=== PATIENT | male | born 1990 | race Caucasian/White ===

== ENCOUNTER 2018-01-15 16:30 | Emergency (ER) | payer OTHER, MEDICAID, SELFPAY ==
[2018-01-15 16:33] VITALS: BP 138/95; PULSE 87; RESP 18; TEMP 37.1; O2SAT 98
[2018-01-15 19:55] VITALS: BP 144/95; PULSE 89; RESP 16; TEMP 36.6; O2SAT 99
--- NOTE | 2018-01-15 20:33 | ED.NAVMDI ---
HPI - Nausea/Vomiting/Diarrhea <VICENTA Valerio - Last Filed: 01/15/18 22:19> General Chief complaint: Nausea/Vomiting/Diarrhea Stated complaint: NON STOP THROWING UP LIGHT HEADNESS/TIRED Time Seen by Provider: 01/15/18 20:17 Source: patient Mode of arrival: ambulatory Limitations: no limitations History of Present Illness HPI Narrative: 27-year-old male here for complaint of having generalized abdominal pain and nausea vomiting over the past few days. He reports that his last emesis was this afternoon. He reports having positive p.o. intake since then. No fevers no chills. He states last bowel movement was earlier today and was unremarkable. No fevers no chills. He denies any urinary symptoms. No other concerns or complaints. MD complaint: nausea and vomiting Related Data Previous Rx's Medication Instructions Recorded ondansetron 4 mg PO TID PRN #6 tab 01/15/18 Allergies Allergy/AdvReac Type Severity Reaction Status Date / Time codeine [CODEINE] Allergy Intermediate rash Unverified 09/13/17 12:07 Review of Systems <VICENTA Valerio - Last Filed: 01/15/18 22:19> Eyes Denies change in vision, Denies eye discharge, Denies irritation and Denies loss of vision ENT Ears, Nose, Mouth, and Throat: Reports as per HPI Cardiovascular Denies chest pain, Denies irregular heart rhythm, Denies lightheadedness, Denies palpitations, Denies dyspnea, Denies dyspnea on exertion and Denies orthopnea Respiratory Denies cough, Denies dyspnea, Denies dyspnea on exertion and Denies wheezing Gastrointestinal Gastrointestinal: Reports abdominal pain, Reports nausea and Reports vomiting Genitourinary Denies hematuria, Denies flank pain, Denies urinary incontinence and Denies urinary urgency Musculoskeletal Denies back pain, Denies muscle weakness, Denies numbness and Denies tingling Integumentary/Breasts Denies pruritus, Denies erythema, Denies rash and Denies wounds Neurologic Denies confusion, Denies loss of vision, Denies numbness and Denies tingling Psychiatric Denies anxiety, Denies confusion, Denies depression, Denies homicidal ideation and Denies suicidal ideation Endocrine Denies palpitations Hematologic/Lymphatic Denies easy bruising Allergic/Immunologic Denies wheezing Exam <VICENTA Valerio - Last Filed: 01/15/18 22:19> Initial Vital Signs Initial Vital Signs: Vital Signs Temperature 98.8 F 01/15/18 16:33 Pulse Rate 87 01/15/18 16:33 Respiratory Rate 18 01/15/18 16:33 Blood Pressure 138/95 H 01/15/18 16:33 Pulse Oximetry 98 01/15/18 16:33 Const General: cooperative and well developed Nutritional Appearance: well nourished Orientation: alert, awake, oriented x3 and not confused HENNJ Mouth: oral mucosae normal, oropharynx normal and moist mucous membranes Eyes Conjunctivae: conjunctivae normal Sclera: sclerae normal Pupils: PERRL EOM: EOM intact bilaterally Resp Effort & Inspection: normal respiratory effort, able to speak in complete sentences, no respiratory distress and no use of accessory muscles Auscultation: clear to auscultation bilaterally, no rales, no rhonchi and no wheezes Cardio Rate: regular rate Rhythm: regular rhythm Heart Sounds: no click, no gallops, no murmurs and no rubs Pulses: normal peripheral pulses GI Inspection: non-distended Palpation: soft, no hepatosplenomegaly, No guarding, No pulsatile mass and No tender Auscultation: normal bowel sounds Skin General: no rashes or lesions noted, No jaundice and No petechiae <Kathya Fenton DO - Last Filed: 01/16/18 04:13> Initial Vital Signs Initial Vital Signs: Vital Signs Temperature 98.8 F 01/15/18 16:33 Pulse Rate 87 01/15/18 16:33 Respiratory Rate 18 01/15/18 16:33 Blood Pressure 138/95 H 01/15/18 16:33 Pulse Oximetry 98 01/15/18 16:33 Course <VICENTA Valerio - Last Filed: 01/15/18 22:19> Orders Ordered: ED Orders 01/15/18 20:40 XR acute abdomen series Stat 01/15/18 21:35 Complete Blood Count AUTO DIFF Stat Comprehensive Metabolic Panel Stat Lipase Stat Discontinued Medications Sodium Chloride (Normal Saline 0.9%) 1,000 mls @ 1,000 mls/hr IV BOLUS ONE Stop: 01/15/18 21:39 Last Infusion: 01/15/18 22:33 Dose: 0 mls/hr Admin: 01/15/18 21:40 Dose: 1,000 mls/hr Ondansetron HCl (Zofran) 4 mg IV NOW ONE Stop: 01/15/18 20:41 Last Admin: 01/15/18 21:39 Dose: 4 mg Ondansetron HCl (Zofran Odt Prepack) 1 bottle MISC SEEINSTR ONE Stop: 01/15/18 22:15 Last Admin: 01/15/18 22:33 Dose: 1 bottle Vital Signs - 8 hr 01/15/18 21:42 01/15/18 22:43 Temperature 98.6 F Pulse Rate 81 78 Respiratory Rate 18 16 Blood Pressure 121/78 H Blood Pressure [Left Arm] 122/78 H Pulse Oximetry 99 99 <Kathya Fenton DO - Last Filed: 01/16/18 04:13> Orders Ordered: ED Orders 01/15/18 20:40 XR acute abdomen series Stat 01/15/18 21:35 Complete Blood Count AUTO DIFF Stat Comprehensive Metabolic Panel Stat Lipase Stat Discontinued Medications Sodium Chloride (Normal Saline 0.9%) 1,000 mls @ 1,000 mls/hr IV BOLUS ONE Stop: 01/15/18 21:39 Last Infusion: 01/15/18 22:33 Dose: 0 mls/hr Admin: 01/15/18 21:40 Dose: 1,000 mls/hr Ondansetron HCl (Zofran) 4 mg IV NOW ONE Stop: 01/15/18 20:41 Last Admin: 01/15/18 21:39 Dose: 4 mg Ondansetron HCl (Zofran Odt Prepack) 1 bottle MISC SEEINSTR ONE Stop: 01/15/18 22:15 Last Admin: 01/15/18 22:33 Dose: 1 bottle Vital Signs - 8 hr 01/15/18 21:42 01/15/18 22:43 Temperature 98.6 F Pulse Rate 81 78 Respiratory Rate 18 16 Blood Pressure 121/78 H Blood Pressure [Left Arm] 122/78 H Pulse Oximetry 99 99 MDM - Nausea/Vomiting/Diarrhea <VICENTA Valerio - Last Filed: 01/15/18 22:19> Lab Data Result diagrams: 01/15/18 21:35 01/15/18 21:35 Lab Results 01/15/18 01/15/18 Range/Units 21:35 21:35 WBC 6.6 (4.5-11.0) X10^3/uL RBC 4.87 (4.5-5.9) X10^6/uL Hgb 13.4 L (13.5-17.5) g/dL Hct 40.0 L (41-53) % MCV 82.0 (80-100) fL MCH 27.5 (26-34) PG MCHC 33.5 (30-36) % RDW 15.4 H (11.6-14.8) % Plt Count 282 (150-400) X10^3/uL Neut % (Auto) 64.8 (50-75) % Lymph % (Auto) 26.4 (25-40) % [place] % (Auto) 6.2 (3-14) % Eos % (Auto) 1.6 L (2-4) % Baso % (Auto) 1.0 (0-2) % Neut # (Auto) 4300 (2008-2929) /uL Sodium 140 (137-145) mmol/L Potassium 3.8 (3.4-5.1) mmol/L Chloride 101 (98-107) mmol/L Carbon Dioxide 27 (22-32) mmol/L BUN 10 (9-20) mg/dL Creatinine 0.90 (0.66-1.25) mg/dL Estimated GFR > 60.0 (>60) mL/min BUN/Creatinine Ratio 11.1 (6-22) Glucose 98 (70-100) mg/dL Calcium 9.5 (8.4-10.2) mg/dL Total Bilirubin 0.9 (0.2-1.3) mg/dL AST 44 (17-59) IU/L ALT 42 (21-72) IU/L Alkaline Phosphatase 110 (38-126) U/L Total Protein 7.7 (6.3-8.2) g/dL Albumin 4.6 (3.5-5.0) g/dL Globulin 3.1 (1.7-4.1) g/dL Albumin/Globulin Ratio 1.5 (1.0-2.8) Lipase 34 (23-300) U/L Imaging Data Abdominal x-ray: Radiologist's impression: PROCEDURE: XR ACUTE ABDOMEN SERIES INDICATIONS: Nausea vomiting generalized abdominal pain bilateral for 3 days TECHNIQUE: One view chest and two views of the abdomen were acquired. COMPARISON: None. FINDINGS: Surgical changes and devices: None. Chest: Lungs are clear. Heart size is normal. No pleural effusions. No pneumoperitoneum. Abdomen: Bowel gas pattern is normal. No suspicious calcifications. Visualized solid organ contours appear normal. Bones: No suspicious bony lesions. IMPRESSION: Unremarkable exam Dictated by: Leanne Rinaldi M.D. on 01/15/2018 at 21:02 Approved by: Leanne Rinaldi M.D. on 01/15/2018 at 21:03 [facility] Narrative Medical decision making narrative: CBC and Chem panel were obtained were unremarkable. Lipase was negative. Abdominal x-ray was obtained was negative for any acute findings. Signs and symptoms presents as a viral illness. [id number] Tylenol Motrin as needed for any discomfort. Zofran is prescribed to help with any nausea vomiting. Slowly advance diet as tolerated. Follow up with primary care provider cords into this week. For any worsening symptoms return to the emergency room. <Kathya Fenton DO - Last Filed: 01/16/18 04:13> Lab Data Lab Results 01/15/18 01/15/18 Range/Units 21:35 21:35 WBC 6.6 (4.5-11.0) X10^3/uL RBC 4.87 (4.5-5.9) X10^6/uL Hgb 13.4 L (13.5-17.5) g/dL Hct 40.0 L (41-53) % MCV 82.0 (80-100) fL MCH 27.5 (26-34) PG MCHC 33.5 (30-36) % RDW 15.4 H (11.6-14.8) % Plt Count 282 (150-400) X10^3/uL Neut % (Auto) 64.8 (50-75) % Lymph % (Auto) 26.4 (25-40) % [place] % (Auto) 6.2 (3-14) % Eos % (Auto) 1.6 L (2-4) % Baso % (Auto) 1.0 (0-2) % Neut # (Auto) 4300 (2073-1759) /uL Sodium 140 (137-145) mmol/L Potassium 3.8 (3.4-5.1) mmol/L Chloride 101 (98-107) mmol/L Carbon Dioxide 27 (22-32) mmol/L BUN 10 (9-20) mg/dL Creatinine 0.90 (0.66-1.25) mg/dL Estimated GFR > 60.0 (>60) mL/min BUN/Creatinine Ratio 11.1 (6-22) Glucose 98 (70-100) mg/dL Calcium 9.5 (8.4-10.2) mg/dL Total Bilirubin 0.9 (0.2-1.3) mg/dL AST 44 (17-59) IU/L ALT 42 (21-72) IU/L Alkaline Phosphatase 110 (38-126) U/L Total Protein 7.7 (6.3-8.2) g/dL Albumin 4.6 (3.5-5.0) g/dL Globulin 3.1 (1.7-4.1) g/dL Albumin/Globulin Ratio 1.5 (1.0-2.8) Lipase 34 (23-300) U/L Discharge Plan Departure Patient Disposition: Home, Self-Care Clinical Impression: Nausea & vomiting Discharge Date/Time: 01/15/18 22:44 Interventions: ED Discharge Assessment Last Done: 01/15/18 22:43 Instructions: Nausea and Vomiting-Adult Activity Restrictions/Additional Instructions: Laboratory results and imaging today were unremarkable. Signs and symptoms presents as a viral illness. [id number] Tylenol or Motrin as needed for any discomfort. Zofran is prescribed to help with nausea use as directed. Plenty of fluids. Slowly advance diet as tolerated. Follow up with primary care provider later this week for re-evaluation. Return emergency room for any worsening symptoms. Prescriptions: New ondansetron 4 mg tablet,disintegrating 4 mg PO TID PRN (Reason: nausea and vomiting) Qty: 6 RF: 0 Referrals: Frankie Abernathy MD [Primary Care Provider] - Stand Alone Forms: Work/School Restrictions <Kathya Fenton DO - Last Filed: 01/16/18 04:13> Cosign ED Attending Keerthi Attestation: I was immediately available in the department for consultation. Documentation has been reviewed. I agree with assessment and plan.
--- NOTE | 2018-01-15 20:40 | DI.RAD.S_ITS ---
PROCEDURE: XR ACUTE ABDOMEN SERIES INDICATIONS: Nausea vomiting generalized abdominal pain bilateral for 3 days TECHNIQUE: One view chest and two views of the abdomen were acquired. COMPARISON: None. FINDINGS: Surgical changes and devices: None. Chest: Lungs are clear. Heart size is normal. No pleural effusions. No pneumoperitoneum. Abdomen: Bowel gas pattern is normal. No suspicious calcifications. Visualized solid organ contours appear normal. Bones: No suspicious bony lesions. IMPRESSION: Unremarkable exam Dictated by: Leanne Rinaldi M.D. on 01/15/2018 at 21:02 Approved by: Leanne Rinaldi M.D. on 01/15/2018 at 21:03
[2018-01-15] MEDS: ONDANSETRON 4 MG/2 ML INJ IV (21:39)
[2018-01-15] MEDS: SODIUM CHLORIDE 0.9% 1,000 ML 1000 ML IV (21:40)
[2018-01-15 21:42] VITALS: BP 122/78; PULSE 81; RESP 18; TEMP 37; O2SAT 99
[2018-01-15 21:45] LABS: Add Manual Diff / Slide Review NO; Eosinophils Percent Auto 1.6 % (2-4); Hemoglobin 13.4 g/dL (13.5-17.5); Lymphocytes Percent Auto 26.4 % (25-40); Mean Corpuscular HGB Conc 33.5 % (30-36); Mean Corpuscular Hemoglobin 27.5 PG (26-34); Monocytes Percent Auto 6.2 % (3-14); Neutrophils Absolute Auto 4300 /uL (3000-5900); Neutrophils Percent Auto 64.8 % (50-75); Platelet Count 282 X10^3/uL (150-400); Red Blood Cell Count 4.87 X10^6/uL (4.5-5.9); Red Cell Distribution Width 15.4 % (11.6-14.8); White Blood Cell Count 6.6 X10^3/uL (4.5-11.0)
[2018-01-15 21:54] LABS: Alanine Aminotransferase 42 IU/L (21-72); Albumin 4.6 g/dL (3.5-5.0); Albumin Globulin Ratio 1.5 (1.0-2.8); Alkaline Phosphatase 110 U/L (38-126); Aspartate Aminotransferase 44 IU/L (17-59); BUN Creatinine Ratio 11.1 (6-22); Bilirubin Total 0.9 mg/dL (0.2-1.3); Blood Urea Nitrogen 10 mg/dL (9-20); Calcium 9.5 mg/dL (8.4-10.2); Carbon Dioxide 27 mmol/L (22-32); Chloride 101 mmol/L (98-107); Estimated Glomerular Filt Rate > 60.0 mL/min (>60); Globulin 3.1 g/dL (1.7-4.1); Glucose 98 mg/dL (70-100); HEMOLYSIS < 15 (0-50); Lipase 34 U/L (23-300); Potassium 3.8 mmol/L (3.4-5.1); Sodium 140 mmol/L (137-145); Total Protein 7.7 g/dL (6.3-8.2)
--- NOTE | 2018-01-15 22:14 | ED_ITS ---
HPI - Nausea/Vomiting/Diarrhea <VICENTA Valerio - Last Filed: 01/15/18 22:19> General Chief complaint: Nausea/Vomiting/Diarrhea Stated complaint: NON STOP THROWING UP LIGHT HEADNESS/TIRED Time Seen by Provider: 01/15/18 20:17 Source: patient Mode of arrival: ambulatory Limitations: no limitations History of Present Illness HPI Narrative: 27-year-old male here for complaint of having generalized abdominal pain and nausea vomiting over the past few days. He reports that his last emesis was this afternoon. He reports having positive p.o. intake since then. No fevers no chills. He states last bowel movement was earlier today and was unremarkable. No fevers no chills. He denies any urinary symptoms. No other concerns or complaints. MD complaint: nausea and vomiting Related Data Previous Rx's Medication Instructions Recorded ondansetron 4 mg PO TID PRN #6 tab 01/15/18 Allergies Allergy/AdvReac Type Severity Reaction Status Date / Time codeine [CODEINE] Allergy Intermediate rash Unverified 09/13/17 12:07 Review of Systems <VICENTA Valerio - Last Filed: 01/15/18 22:19> Eyes Denies change in vision, Denies eye discharge, Denies irritation and Denies loss of vision ENT Ears, Nose, Mouth, and Throat: Reports as per HPI Cardiovascular Denies chest pain, Denies irregular heart rhythm, Denies lightheadedness, Denies palpitations, Denies dyspnea, Denies dyspnea on exertion and Denies orthopnea Respiratory Denies cough, Denies dyspnea, Denies dyspnea on exertion and Denies wheezing Gastrointestinal Gastrointestinal: Reports abdominal pain, Reports nausea and Reports vomiting Genitourinary Denies hematuria, Denies flank pain, Denies urinary incontinence and Denies urinary urgency Musculoskeletal Denies back pain, Denies muscle weakness, Denies numbness and Denies tingling Integumentary/Breasts Denies pruritus, Denies erythema, Denies rash and Denies wounds Neurologic Denies confusion, Denies loss of vision, Denies numbness and Denies tingling Psychiatric Denies anxiety, Denies confusion, Denies depression, Denies homicidal ideation and Denies suicidal ideation Endocrine Denies palpitations Hematologic/Lymphatic Denies easy bruising Allergic/Immunologic Denies wheezing Exam <VICENTA Valerio - Last Filed: 01/15/18 22:19> Initial Vital Signs Initial Vital Signs: Vital Signs Temperature 98.8 F 01/15/18 16:33 Pulse Rate 87 01/15/18 16:33 Respiratory Rate 18 01/15/18 16:33 Blood Pressure 138/95 H 01/15/18 16:33 Pulse Oximetry 98 01/15/18 16:33 Const General: cooperative and well developed Nutritional Appearance: well nourished Orientation: alert, awake, oriented x3 and not confused HENMS Mouth: oral mucosae normal, oropharynx normal and moist mucous membranes Eyes Conjunctivae: conjunctivae normal Sclera: sclerae normal Pupils: PERRL EOM: EOM intact bilaterally Resp Effort & Inspection: normal respiratory effort, able to speak in complete sentences, no respiratory distress and no use of accessory muscles Auscultation: clear to auscultation bilaterally, no rales, no rhonchi and no wheezes Cardio Rate: regular rate Rhythm: regular rhythm Heart Sounds: no click, no gallops, no murmurs and no rubs Pulses: normal peripheral pulses GI Inspection: non-distended Palpation: soft, no hepatosplenomegaly, No guarding, No pulsatile mass and No tender Auscultation: normal bowel sounds Skin General: no rashes or lesions noted, No jaundice and No petechiae <Kathya Fenton DO - Last Filed: 01/16/18 04:13> Initial Vital Signs Initial Vital Signs: Vital Signs Temperature 98.8 F 01/15/18 16:33 Pulse Rate 87 01/15/18 16:33 Respiratory Rate 18 01/15/18 16:33 Blood Pressure 138/95 H 01/15/18 16:33 Pulse Oximetry 98 01/15/18 16:33 Course <VICENTA Valerio - Last Filed: 01/15/18 22:19> Orders Ordered: ED Orders 01/15/18 20:40 XR acute abdomen series Stat 01/15/18 21:35 Complete Blood Count AUTO DIFF Stat Comprehensive Metabolic Panel Stat Lipase Stat Discontinued Medications Sodium Chloride (Normal Saline 0.9%) 1,000 mls @ 1,000 mls/hr IV BOLUS ONE Stop: 01/15/18 21:39 Last Infusion: 01/15/18 22:33 Dose: 0 mls/hr Admin: 01/15/18 21:40 Dose: 1,000 mls/hr Ondansetron HCl (Zofran) 4 mg IV NOW ONE Stop: 01/15/18 20:41 Last Admin: 01/15/18 21:39 Dose: 4 mg Ondansetron HCl (Zofran Odt Prepack) 1 bottle MISC SEEINSTR ONE Stop: 01/15/18 22:15 Last Admin: 01/15/18 22:33 Dose: 1 bottle Vital Signs - 8 hr 01/15/18 21:42 01/15/18 22:43 Temperature 98.6 F Pulse Rate 81 78 Respiratory Rate 18 16 Blood Pressure 121/78 H Blood Pressure [Left Arm] 122/78 H Pulse Oximetry 99 99 <Kathya Fenton DO - Last Filed: 01/16/18 04:13> Orders Ordered: ED Orders 01/15/18 20:40 XR acute abdomen series Stat 01/15/18 21:35 Complete Blood Count AUTO DIFF Stat Comprehensive Metabolic Panel Stat Lipase Stat Discontinued Medications Sodium Chloride (Normal Saline 0.9%) 1,000 mls @ 1,000 mls/hr IV BOLUS ONE Stop: 01/15/18 21:39 Last Infusion: 01/15/18 22:33 Dose: 0 mls/hr Admin: 01/15/18 21:40 Dose: 1,000 mls/hr Ondansetron HCl (Zofran) 4 mg IV NOW ONE Stop: 01/15/18 20:41 Last Admin: 01/15/18 21:39 Dose: 4 mg Ondansetron HCl (Zofran Odt Prepack) 1 bottle MISC SEEINSTR ONE Stop: 01/15/18 22:15 Last Admin: 01/15/18 22:33 Dose: 1 bottle Vital Signs - 8 hr 01/15/18 21:42 01/15/18 22:43 Temperature 98.6 F Pulse Rate 81 78 Respiratory Rate 18 16 Blood Pressure 121/78 H Blood Pressure [Left Arm] 122/78 H Pulse Oximetry 99 99 MDM - Nausea/Vomiting/Diarrhea <VICENTA Valerio - Last Filed: 01/15/18 22:19> Lab Data Result diagrams: 01/15/18 21:35 01/15/18 21:35 Lab Results 01/15/18 01/15/18 Range/Units 21:35 21:35 WBC 6.6 (4.5-11.0) X10^3/uL RBC 4.87 (4.5-5.9) X10^6/uL Hgb 13.4 L (13.5-17.5) g/dL Hct 40.0 L (41-53) % MCV 82.0 (80-100) fL MCH 27.5 (26-34) PG MCHC 33.5 (30-36) % RDW 15.4 H (11.6-14.8) % Plt Count 282 (150-400) X10^3/uL Neut % (Auto) 64.8 (50-75) % Lymph % (Auto) 26.4 (25-40) % [place] % (Auto) 6.2 (3-14) % Eos % (Auto) 1.6 L (2-4) % Baso % (Auto) 1.0 (0-2) % Neut # (Auto) 4300 (9489-8046) /uL Sodium 140 (137-145) mmol/L Potassium 3.8 (3.4-5.1) mmol/L Chloride 101 (98-107) mmol/L Carbon Dioxide 27 (22-32) mmol/L BUN 10 (9-20) mg/dL Creatinine 0.90 (0.66-1.25) mg/dL Estimated GFR > 60.0 (>60) mL/min BUN/Creatinine Ratio 11.1 (6-22) Glucose 98 (70-100) mg/dL Calcium 9.5 (8.4-10.2) mg/dL Total Bilirubin 0.9 (0.2-1.3) mg/dL AST 44 (17-59) IU/L ALT 42 (21-72) IU/L Alkaline Phosphatase 110 (38-126) U/L Total Protein 7.7 (6.3-8.2) g/dL Albumin 4.6 (3.5-5.0) g/dL Globulin 3.1 (1.7-4.1) g/dL Albumin/Globulin Ratio 1.5 (1.0-2.8) Lipase 34 (23-300) U/L Imaging Data Abdominal x-ray: Radiologist's impression: PROCEDURE: XR ACUTE ABDOMEN SERIES INDICATIONS: Nausea vomiting generalized abdominal pain bilateral for 3 days TECHNIQUE: One view chest and two views of the abdomen were acquired. COMPARISON: None. FINDINGS: Surgical changes and devices: None. Chest: Lungs are clear. Heart size is normal. No pleural effusions. No pneumoperitoneum. Abdomen: Bowel gas pattern is normal. No suspicious calcifications. Visualized solid organ contours appear normal. Bones: No suspicious bony lesions. IMPRESSION: Unremarkable exam Dictated by: Leanne Rinaldi M.D. on 01/15/2018 at 21:02 Approved by: Leanne Rinaldi M.D. on 01/15/2018 at 21:03 [facility] Narrative Medical decision making narrative: CBC and Chem panel were obtained were unremarkable. Lipase was negative. Abdominal x-ray was obtained was negative for any acute findings. Signs and symptoms presents as a viral illness. Over- the-counter Tylenol Motrin as needed for any discomfort. Zofran is prescribed to help with any nausea vomiting. Slowly advance diet as tolerated. Follow up with primary care provider cords into this week. For any worsening symptoms return to the emergency room. <Kathya Fenton DO - Last Filed: 01/16/18 04:13> Lab Data Lab Results 01/15/18 01/15/18 Range/Units 21:35 21:35 WBC 6.6 (4.5-11.0) X10^3/uL RBC 4.87 (4.5-5.9) X10^6/uL Hgb 13.4 L (13.5-17.5) g/dL Hct 40.0 L (41-53) % MCV 82.0 (80-100) fL MCH 27.5 (26-34) PG MCHC 33.5 (30-36) % RDW 15.4 H (11.6-14.8) % Plt Count 282 (150-400) X10^3/uL Neut % (Auto) 64.8 (50-75) % Lymph % (Auto) 26.4 (25-40) % [place] % (Auto) 6.2 (3-14) % Eos % (Auto) 1.6 L (2-4) % Baso % (Auto) 1.0 (0-2) % Neut # (Auto) 4300 (8223-7481) /uL Sodium 140 (137-145) mmol/L Potassium 3.8 (3.4-5.1) mmol/L Chloride 101 (98-107) mmol/L Carbon Dioxide 27 (22-32) mmol/L BUN 10 (9-20) mg/dL Creatinine 0.90 (0.66-1.25) mg/dL Estimated GFR > 60.0 (>60) mL/min BUN/Creatinine Ratio 11.1 (6-22) Glucose 98 (70-100) mg/dL Calcium 9.5 (8.4-10.2) mg/dL Total Bilirubin 0.9 (0.2-1.3) mg/dL AST 44 (17-59) IU/L ALT 42 (21-72) IU/L Alkaline Phosphatase 110 (38-126) U/L Total Protein 7.7 (6.3-8.2) g/dL Albumin 4.6 (3.5-5.0) g/dL Globulin 3.1 (1.7-4.1) g/dL Albumin/Globulin Ratio 1.5 (1.0-2.8) Lipase 34 (23-300) U/L Discharge Plan Departure Patient Disposition: Home, Self-Care Clinical Impression: Nausea & vomiting Discharge Date/Time: 01/15/18 22:44 Interventions: ED Discharge Assessment Last Done: 01/15/18 22:43 Instructions: Nausea and Vomiting-Adult Activity Restrictions/Additional Instructions: Laboratory results and imaging today were unremarkable. Signs and symptoms presents as a viral illness. [id number] Tylenol or Motrin as needed for any discomfort. Zofran is prescribed to help with nausea use as directed. Plenty of fluids. Slowly advance diet as tolerated. Follow up with primary care provider later this week for re-evaluation. Return emergency room for any worsening symptoms. Prescriptions: New ondansetron 4 mg tablet,disintegrating 4 mg PO TID PRN (Reason: nausea and vomiting) Qty: 6 RF: 0 Referrals: Frankie Abernathy MD [Primary Care Provider] - Stand Alone Forms: Work/School Restrictions <Kathya Fenton DO - Last Filed: 01/16/18 04:13> Cosign ED Attending Keerthi Attestation: I was immediately available in the department for consultation. Documentation has been reviewed. I agree with assessment and plan.
[2018-01-15] MEDS: ONDANSETRON 4 MG ODT PREPACK 1 BOTTLE MISC (22:33)
[2018-01-15 22:43] VITALS: BP 121/78; PULSE 78; RESP 16; O2SAT 99
== END 2018-01-15 22:44 | disposition home or self-care (01) ==
PROVIDERS: Emergency Provider Nurse Practitioner Family; Family Provider Family Medicine; PCP Family Medicine
DX: R11.2 Nausea with vomiting, unspecified (principal)
CPT/HCPCS: 36591; 74022; 80053; 83690; 85025; 96361; 96374; 99283; 99284; J2405

== ENCOUNTER 2019-01-09 09:28 | Emergency (ER) | payer OTHER, MEDICAID, SELFPAY ==
[2019-01-09] VITALS (7 sets, daily range): BP systolic 128–140; BP diastolic 82–100; PULSE 79–98; RESP 16–18; TEMP 36.6–36.7; O2SAT 97–100
[2019-01-09 10:41] LABS: Add Manual Diff / Slide Review NO; Basophils Absolute Auto 100 /uL (0-100); Basophils Percent Auto 1.3 % (0-2); Eosinophils Absolute Auto 100 /uL (0-450); Eosinophils Percent Auto 1.9 % (2-4); Hematocrit 34.1 % (41-53); Hemoglobin 10.8 g/dL (13.5-17.5); Lymphocytes Absolute Auto 1400 /uL (1100-4500); Lymphocytes Percent Auto 24.3 % (25-40); Mean Corpuscular HGB Conc 31.6 % (30-36); Mean Corpuscular Hemoglobin 22.5 PG (26-34); Mean Corpuscular Volume 71.1 fL (80-100); Monocytes Absolute Auto 300 /uL (0-900); Monocytes Percent Auto 5.3 % (3-14); Neutrophils Absolute Auto 4000 /uL (1500-7000); Neutrophils Percent Auto 67.2 % (50-75); Platelet Count 368 X10^3/uL (150-400); Red Cell Distribution Width 16.2 % (11.6-14.8); White Blood Cell Count 5.9 X10^3/uL (4.5-11.0)
[2019-01-09 10:47] LABS: Prothrombin Time 11.4 SECONDS (10.1-12.7)
[2019-01-09] MEDS: ONDANSETRON 4 MG/2 ML INJ IV ×2 (10:49→11:57)
[2019-01-09] MEDS: SODIUM CHLORIDE 0.9% 1,000 ML 1000 ML IV ×2 (10:49→12:00)
[2019-01-09 10:50] LABS: Alanine Aminotransferase 139 IU/L (21-72); Albumin 4.7 g/dL (3.5-5.0); Albumin Globulin Ratio 1.5 (1.0-2.8); Alkaline Phosphatase 112 U/L (38-126); Aspartate Aminotransferase 105 IU/L (17-59); BUN Creatinine Ratio 12.5 (6-22); Bilirubin Total 0.4 mg/dL (0.2-1.3); Blood Urea Nitrogen 10 mg/dL (9-20); Calcium 9.2 mg/dL (8.4-10.2); Carbon Dioxide 21 mmol/L (22-32); Chloride 105 mmol/L (98-107); Estimated Glomerular Filt Rate > 60.0 mL/min (>60); Globulin 3.1 g/dL (1.7-4.1); Glucose 100 mg/dL (70-100); HEMOLYSIS < 15 (0-50); Lipase 68 U/L (23-300); PTT Partial Thromboplastin Tim 32 SECONDS (26.4-36.2); Sodium 141 mmol/L (137-145); Total Protein 7.8 g/dL (6.3-8.2)
[2019-01-09 11:39] LABS: Procalcitonin < 0.05 ng/mL (<0.5)
--- NOTE | 2019-01-09 12:16 | ED.NAVMDI ---
HPI - Nausea/Vomiting/Diarrhea <STEPHANIE Olivier - Last Filed: 01/09/19 19:09> General Chief complaint: Nausea/Vomiting/Diarrhea Stated complaint: Stomach issues Time Seen by Provider: 01/09/19 10:47 Source: patient and family Mode of arrival: ambulatory Limitations: no limitations History of Present Illness HPI Narrative: The patient is a 28-year-old male current marijuana smoker with history of ?stomach issues who presents with a chief complaint of nausea vomiting and diarrhea. He states that his general nausea vomiting and diarrhea is been going on since he was a teenager, and that he has episodes of this. He states that over the past month diarrhea has been getting worse. He states that today he just felt as though he could not go to work, so he came in. He complains of generalized abdominal pain, not localized anywhere. He states he last vomited yesterday. Denies dysuria urgency or frequency. Admits to daily marijuana smoking recently. Denies any fevers but complains of some chills. Denies any chest pain, coughing or shortness of breath. Related Data Previous Rx's Medication Instructions Recorded ondansetron 4 mg PO Q6H PRN #20 tab 01/09/19 Allergies Allergy/AdvReac Type Severity Reaction Status Date / Time codeine [CODEINE] Allergy Intermediate rash Verified 01/09/19 09:53 Review of Systems <STEPHANIE Olivier - Last Filed: 01/09/19 19:09> Review of Systems GENERAL: Denies chills, fatigue, malaise, fever, sweats. HEENT: Denies sinus pain, ear pain, sore throat, difficulty swallowing, dizziness. RESPIRATORY: Denies dyspnea, cough, wheezing, hemoptysis, sputum. CARDIOVASCULAR: Denies chest pain, palpitations, orthopnea, edema, GASTROINTESTINAL: See HPI : Denies dysuria, frequency, incontinence, hematuria, urinary retention. MUSCULOSKELETAL: denies weakness, joint pain, or bony pain SKIN: Denies rash, skin lesions, or other NEUROLOGIC: Denies weakness, headache, numbness, change in speech, confusion, seizures, incoordination. PSYCHIATRIC: No concerning psychosocial issues. 12 point review of systems is negative except for those stated above PFSH <STEPHANIE Olivier - Last Filed: 01/09/19 19:09> Medical History No significant past medical history (Acute) Social History Smoking Status: Current every day smoker Social History Smoking Status: Current every day smoker Exam <CHANNING Olivier - Last Filed: 01/09/19 19:09> Narrative Exam Narrative: GENERAL: This is a well-nourished, well-developed patient, in no acute distress HEAD: Atraumatic. Normocephalic. No temporal or scalp tenderness. EYES: Pupils equal round and reactive. Extraocular motions intact. No scleral icterus. No injection or drainage. ENT: Nose without bleeding, purulent drainage or septal hematoma. Throat without erythema, tonsillar hypertrophy or exudate. Uvula midline. Airway patent. NECK: Trachea midline. No JVD or lymphadenopathy. Supple, nontender, no meningeal signs. CARDIOVASCULAR: Regular rate and rhythm without murmurs, gallops, or rubs. RESPIRATORY: Clear to auscultation. Breath sounds equal bilaterally. No wheezes, rales, or rhonchi. GASTROINTESTINAL: Abdomen soft, diffusely tender nondistended. No hepato-splenomegaly, or palpable masses. No guarding. No guarding, nonrigid abdomen, active bowel sounds all 4 quadrants. EXTREMITIES: No clubbing, cyanosis, or edema. No joint tenderness, effusion, or edema noted. BACK: Nontender without deformity or crepitance. No flank tenderness. NEURO: AOx3. SKIN: No rash or erythema. Initial Vital Signs Initial Vital Signs: Vital Signs Temperature 97.9 F 01/09/19 09:50 Pulse Rate 98 H 01/09/19 09:50 Respiratory Rate 18 01/09/19 09:50 Blood Pressure 140/95 H 01/09/19 09:50 Pulse Oximetry 97 01/09/19 09:50 <Leslie Lim DO - Last Filed: 01/10/19 07:37> Initial Vital Signs Initial Vital Signs: Vital Signs Temperature 97.9 F 01/09/19 09:50 Pulse Rate 98 H 01/09/19 09:50 Respiratory Rate 18 01/09/19 09:50 Blood Pressure 140/95 H 01/09/19 09:50 Pulse Oximetry 97 01/09/19 09:50 Course <AMAYA Olivier- - Last Filed: 01/09/19 19:09> Orders Ordered: Discontinued Medications Al Hydrox/Mg Hydrox/Simethicone 20 ml/ Lidocaine HCl 15 ml 0 ml PO NOW ONE Stop: 01/09/19 14:10 Last Admin: 01/09/19 15:04 Dose: 35 ml Sodium Chloride (Normal Saline 0.9%) 1,000 mls @ 1,000 mls/hr IV BOLUS ONE Stop: 01/09/19 11:09 Last Infusion: 01/09/19 11:59 Dose: 0 mls/hr Admin: 01/09/19 10:49 Dose: 1,000 mls/hr Sodium Chloride (Normal Saline 0.9%) 1,000 mls @ 1,000 mls/hr IV BOLUS ONE Stop: 01/09/19 12:39 Last Infusion: 01/09/19 14:46 Dose: 0 mls/hr Admin: 01/09/19 12:00 Dose: 1,000 mls/hr Ketorolac Tromethamine (Toradol) 30 mg IV NOW ONE Stop: 01/09/19 14:10 Last Admin: 01/09/19 15:04 Dose: 30 mg Ondansetron HCl (Zofran) 4 mg IV NOW ONE Stop: 01/09/19 10:10 Last Admin: 01/09/19 10:49 Dose: 4 mg Ondansetron HCl (Zofran) 4 mg IV NOW ONE Stop: 01/09/19 11:41 Last Admin: 01/09/19 11:57 Dose: 4 mg Pantoprazole Sodium (Protonix) 40 mg IV NOW ONE Stop: 01/09/19 14:10 Last Admin: 01/09/19 14:58 Dose: 40 mg Vital Signs - 8 hr 01/09/19 11:20 01/09/19 12:03 01/09/19 13:00 Temperature Pulse Rate 82 79 82 Respiratory Rate 17 16 16 Blood Pressure [Right Arm] 133/90 133/94 H 128/82 Pulse Oximetry 100 99 100 01/09/19 15:00 01/09/19 16:00 01/09/19 17:09 Temperature 98.1 F Pulse Rate 92 H 96 H 88 Respiratory Rate 17 17 17 Blood Pressure [Right Arm] 134/100 H 133/93 H 130/82 Pulse Oximetry 100 100 <Leslie Lim, - Last Filed: 01/10/19 07:37> Orders Ordered: Discontinued Medications Al Hydrox/Mg Hydrox/Simethicone 20 ml/ Lidocaine HCl 15 ml 0 ml PO NOW ONE Stop: 01/09/19 14:10 Last Admin: 01/09/19 15:04 Dose: 35 ml Sodium Chloride (Normal Saline 0.9%) 1,000 mls @ 1,000 mls/hr IV BOLUS ONE Stop: 01/09/19 11:09 Last Infusion: 01/09/19 11:59 Dose: 0 mls/hr Admin: 01/09/19 10:49 Dose: 1,000 mls/hr Sodium Chloride (Normal Saline 0.9%) 1,000 mls @ 1,000 mls/hr IV BOLUS ONE Stop: 01/09/19 12:39 Last Infusion: 01/09/19 14:46 Dose: 0 mls/hr Admin: 01/09/19 12:00 Dose: 1,000 mls/hr Ketorolac Tromethamine (Toradol) 30 mg IV NOW ONE Stop: 01/09/19 14:10 Last Admin: 01/09/19 15:04 Dose: 30 mg Ondansetron HCl (Zofran) 4 mg IV NOW ONE Stop: 01/09/19 10:10 Last Admin: 01/09/19 10:49 Dose: 4 mg Ondansetron HCl (Zofran) 4 mg IV NOW ONE Stop: 01/09/19 11:41 Last Admin: 01/09/19 11:57 Dose: 4 mg Pantoprazole Sodium (Protonix) 40 mg IV NOW ONE Stop: 01/09/19 14:10 Last Admin: 01/09/19 14:58 Dose: 40 mg Vital Signs - 8 hr 01/09/19 11:20 01/09/19 12:03 01/09/19 13:00 Temperature Pulse Rate 82 79 82 Respiratory Rate 17 16 16 Blood Pressure [Right Arm] 133/90 133/94 H 128/82 Pulse Oximetry 100 99 100 01/09/19 15:00 01/09/19 16:00 01/09/19 17:09 Temperature 98.1 F Pulse Rate 92 H 96 H 88 Respiratory Rate 17 17 17 Blood Pressure [Right Arm] 134/100 H 133/93 H 130/82 Pulse Oximetry 100 100 MDM - Nausea/Vomiting/Diarrhea <Leslie Mari, REPAIRING CALIBRATOR- - Last Filed: 01/09/19 19:09> Lab Data Result diagrams: 01/09/19 10:36 01/09/19 10:36 Lab Results 01/09/19 01/09/19 01/09/19 Range/Units 10:36 10:36 10:36 WBC 5.9 (4.5-11.0) X10^3/uL RBC 4.80 (4.5-5.9) X10^6/uL Hgb 10.8 L (13.5-17.5) g/dL Hct 34.1 L (41-53) % MCV 71.1 L (80-100) fL MCH 22.5 L (26-34) PG MCHC 31.6 (30-36) % RDW 16.2 H (11.6-14.8) % Plt Count 368 (150-400) X10^3/uL Neut % (Auto) 67.2 (50-75) % Lymph % (Auto) 24.3 L (25-40) % [place] % (Auto) 5.3 (3-14) % Eos % (Auto) 1.9 L (2-4) % Baso % (Auto) 1.3 (0-2) % Neut # (Auto) 4000 (6382-4770) /uL Lymph # (Auto) 1400 (2568-6015) /uL [place] # (Auto) 300 (0-900) /uL Eos # (Auto) 100 (0-450) /uL Baso # (Auto) 100 (0-100) /uL PT 11.4 (10.1-12.7) SECONDS INR 1.0 (0.9-1.3) APTT 32 (26.4-36.2) SECONDS Sodium 141 (137-145) mmol/L Potassium 4.0 (3.4-5.1) mmol/L Chloride 105 (98-107) mmol/L Carbon Dioxide 21 L (22-32) mmol/L BUN 10 (9-20) mg/dL Creatinine 0.80 (0.66-1.25) mg/dL Estimated GFR > 60.0 (>60) mL/min BUN/Creatinine Ratio 12.5 (6-22) Glucose 100 (70-100) mg/dL Calcium 9.2 (8.4-10.2) mg/dL Total Bilirubin 0.4 (0.2-1.3) mg/dL AST 105 H (17-59) IU/L ALT 139 H (21-72) IU/L Alkaline Phosphatase 112 (38-126) U/L Total Protein 7.8 (6.3-8.2) g/dL Albumin 4.7 (3.5-5.0) g/dL Globulin 3.1 (1.7-4.1) g/dL Albumin/Globulin Ratio 1.5 (1.0-2.8) Lipase 68 (23-300) U/L Procalcitonin (<0.5) ng/mL Urine Opiates Screen (Negative) Ur Oxycodone Screen (Negative) Urine Methadone Screen (Negative) Ur Barbiturates Screen (Negative) U Tricyclic Antidepress (Negative) Ur Phencyclidine Scrn (Negative) Ur Amphetamines Screen (Negative) U Methamphetamines Scrn (Negative) Ur MDMA Scrn (Ecstasy) (Negative) U Benzodiazepines Scrn (Negative) Urine Cocaine Screen (Negative) U Marijuana (THC) Screen (Negative) 01/09/19 01/09/19 Range/Units 10:36 14:06 WBC (4.5-11.0) X10^3/uL RBC (4.5-5.9) X10^6/uL Hgb (13.5-17.5) g/dL Hct (41-53) % MCV (80-100) fL MCH (26-34) PG MCHC (30-36) % RDW (11.6-14.8) % Plt Count (150-400) X10^3/uL Neut % (Auto) (50-75) % Lymph % (Auto) (25-40) % [place] % (Auto) (3-14) % Eos % (Auto) (2-4) % Baso % (Auto) (0-2) % Neut # (Auto) (5710-7008) /uL Lymph # (Auto) (4264-4003) /uL [place] # (Auto) (0-900) /uL Eos # (Auto) (0-450) /uL Baso # (Auto) (0-100) /uL PT (10.1-12.7) SECONDS INR (0.9-1.3) APTT (26.4-36.2) SECONDS Sodium (137-145) mmol/L Potassium (3.4-5.1) mmol/L Chloride (98-107) mmol/L Carbon Dioxide (22-32) mmol/L BUN (9-20) mg/dL Creatinine (0.66-1.25) mg/dL Estimated GFR (>60) mL/min BUN/Creatinine Ratio (6-22) Glucose (70-100) mg/dL Calcium (8.4-10.2) mg/dL Total Bilirubin (0.2-1.3) mg/dL AST (17-59) IU/L ALT (21-72) IU/L Alkaline Phosphatase (38-126) U/L Total Protein (6.3-8.2) g/dL Albumin (3.5-5.0) g/dL Globulin (1.7-4.1) g/dL Albumin/Globulin Ratio (1.0-2.8) Lipase (23-300) U/L Procalcitonin < 0.05 (<0.5) ng/mL Urine Opiates Screen Negative (Negative) Ur Oxycodone Screen Negative (Negative) Urine Methadone Screen Negative (Negative) Ur Barbiturates Screen Negative (Negative) U Tricyclic Antidepress Negative (Negative) Ur Phencyclidine Scrn Negative (Negative) Ur Amphetamines Screen Negative (Negative) U Methamphetamines Scrn Negative (Negative) Ur MDMA Scrn (Ecstasy) Negative (Negative) U Benzodiazepines Scrn Negative (Negative) Urine Cocaine Screen Negative (Negative) U Marijuana (THC) Screen Positive H (Negative) Urine Dip Bedside Urine Glucose Negative Bedside Urine Bilirubin - Negative Bedside Urine Ketone +/- 5 Urine Specific [place] 1.025 Bedside Urine Occult Blood - Negative Bedside Urine pH 5.5 Bedside Urine Protein - Negative Bedside Urine Urobilinogen - Negative Bedside Urine Nitrite - Negative Bedside Urine Leukocytes - Negative Esterase Imaging Data US - abdomen: Radiologist's impression: [address] [address] Ultrasound Report Signed Patient: Iain Mckeon MMR#: [id number] : 1990Acct:[id number] Age/Sex: 28 / MDate of Service: 01/09/19 Loc: ED Accession Number: [id number] Procedure: US abdomen limited Ordering Provider: Leslie Mari PROCEDURE: US ABDOMEN LIMITED INDICATIONS: EPIGASTRIC PAIN TECHNIQUE: Real-time focused scanning was performed of the abdomen, with image documentation. COMPARISON: None. FINDINGS: Liver is normal in size. Increased liver parenchymal echotexture is seen. No discrete hepatic lesion. There is no gallstone. No gallbladder wall thickening or pericholecystic fluid. There is no intrahepatic biliary ductal dilatation. Mild prominence of common bile that measures up to 6.9 mm in diameter is seen. The visualized portion of pancreas shows no gross abnormality. IMPRESSION: 1. Hepatic steatosis. No discrete hepatic lesion. 2. Normal appearing gallbladder. No sonographic evidence of acute cholecystitis. 3. Mild prominence of common bile duct for patient's age. No gross choledocholithiasis. Dictated by: Prashanth Faust M.D. on 01/09/2019 at 13:30 Approved by: Prashanth Faust M.D. on 01/09/2019 at 13:32 MDM Narrative Medical decision making narrative: The patient is a 28-year-old male who presents with years of nausea vomiting and diarrhea. He states it waxes and wanes, comes and goes. He states has been worse over the past month. He endorses place stools. The patient does not have an acute abdominal exam. He does have some pain to palpation of right upper quadrant, so I obtained an ultrasound. This shows some fatty liver. He is able to take p.o.. He has been given IV fluid, Zofran, remains afebrile and states he is increasingly comfortable after Toradol and Protonix. He declined prescription of Protonix, but accepted a prescription of Zofran. This appears to be a chronic issue, stating that the patient has had these symptoms for the past several years. Of note the patient was unable to give a stool sample during a 6 hour ER stay, and ended up stating that he wanted to leave. I encouraged him to follow up with primary care physician gave him contact information for the health learning disabilities resource teacher. I think this likely has a chronic issues such as colitis or Crohn's. Discussed at length coming back to the ER for any acute concerns was abdominal pain with fever, inability keep down fluids etc. No questions or concerns upon discharge. <Leslie Lim, - Last Filed: 01/10/19 07:37> Lab Data Lab Results 01/09/19 01/09/19 01/09/19 Range/Units 10:36 10:36 10:36 WBC 5.9 (4.5-11.0) X10^3/uL RBC 4.80 (4.5-5.9) X10^6/uL Hgb 10.8 L (13.5-17.5) g/dL Hct 34.1 L (41-53) % MCV 71.1 L (80-100) fL MCH 22.5 L (26-34) PG MCHC 31.6 (30-36) % RDW 16.2 H (11.6-14.8) % Plt Count 368 (150-400) X10^3/uL Neut % (Auto) 67.2 (50-75) % Lymph % (Auto) 24.3 L (25-40) % [place] % (Auto) 5.3 (3-14) % Eos % (Auto) 1.9 L (2-4) % Baso % (Auto) 1.3 (0-2) % Neut # (Auto) 4000 (1578-6272) /uL Lymph # (Auto) 1400 (9175-9526) /uL [place] # (Auto) 300 (0-900) /uL Eos # (Auto) 100 (0-450) /uL Baso # (Auto) 100 (0-100) /uL PT 11.4 (10.1-12.7) SECONDS INR 1.0 (0.9-1.3) APTT 32 (26.4-36.2) SECONDS Sodium 141 (137-145) mmol/L Potassium 4.0 (3.4-5.1) mmol/L Chloride 105 (98-107) mmol/L Carbon Dioxide 21 L (22-32) mmol/L BUN 10 (9-20) mg/dL Creatinine 0.80 (0.66-1.25) mg/dL Estimated GFR > 60.0 (>60) mL/min BUN/Creatinine Ratio 12.5 (6-22) Glucose 100 (70-100) mg/dL Calcium 9.2 (8.4-10.2) mg/dL Total Bilirubin 0.4 (0.2-1.3) mg/dL AST 105 H (17-59) IU/L ALT 139 H (21-72) IU/L Alkaline Phosphatase 112 (38-126) U/L Total Protein 7.8 (6.3-8.2) g/dL Albumin 4.7 (3.5-5.0) g/dL Globulin 3.1 (1.7-4.1) g/dL Albumin/Globulin Ratio 1.5 (1.0-2.8) Lipase 68 (23-300) U/L Procalcitonin (<0.5) ng/mL Urine Opiates Screen (Negative) Ur Oxycodone Screen (Negative) Urine Methadone Screen (Negative) Ur Barbiturates Screen (Negative) U Tricyclic Antidepress (Negative) Ur Phencyclidine Scrn (Negative) Ur Amphetamines Screen (Negative) U Methamphetamines Scrn (Negative) Ur MDMA Scrn (Ecstasy) (Negative) U Benzodiazepines Scrn (Negative) Urine Cocaine Screen (Negative) U Marijuana (THC) Screen (Negative) 01/09/19 01/09/19 Range/Units 10:36 14:06 WBC (4.5-11.0) X10^3/uL RBC (4.5-5.9) X10^6/uL Hgb (13.5-17.5) g/dL Hct (41-53) % MCV (80-100) fL MCH (26-34) PG MCHC (30-36) % RDW (11.6-14.8) % Plt Count (150-400) X10^3/uL Neut % (Auto) (50-75) % Lymph % (Auto) (25-40) % [place] % (Auto) (3-14) % Eos % (Auto) (2-4) % Baso % (Auto) (0-2) % Neut # (Auto) (3129-1848) /uL Lymph # (Auto) (7603-4481) /uL [place] # (Auto) (0-900) /uL Eos # (Auto) (0-450) /uL Baso # (Auto) (0-100) /uL PT (10.1-12.7) SECONDS INR (0.9-1.3) APTT (26.4-36.2) SECONDS Sodium (137-145) mmol/L Potassium (3.4-5.1) mmol/L Chloride (98-107) mmol/L Carbon Dioxide (22-32) mmol/L BUN (9-20) mg/dL Creatinine (0.66-1.25) mg/dL Estimated GFR (>60) mL/min BUN/Creatinine Ratio (6-22) Glucose (70-100) mg/dL Calcium (8.4-10.2) mg/dL Total Bilirubin (0.2-1.3) mg/dL AST (17-59) IU/L ALT (21-72) IU/L Alkaline Phosphatase (38-126) U/L Total Protein (6.3-8.2) g/dL Albumin (3.5-5.0) g/dL Globulin (1.7-4.1) g/dL Albumin/Globulin Ratio (1.0-2.8) Lipase (23-300) U/L Procalcitonin < 0.05 (<0.5) ng/mL Urine Opiates Screen Negative (Negative) Ur Oxycodone Screen Negative (Negative) Urine Methadone Screen Negative (Negative) Ur Barbiturates Screen Negative (Negative) U Tricyclic Antidepress Negative (Negative) Ur Phencyclidine Scrn Negative (Negative) Ur Amphetamines Screen Negative (Negative) U Methamphetamines Scrn Negative (Negative) Ur MDMA Scrn (Ecstasy) Negative (Negative) U Benzodiazepines Scrn Negative (Negative) Urine Cocaine Screen Negative (Negative) U Marijuana (THC) Screen Positive H (Negative) Urine Dip Bedside Urine Glucose Negative Bedside Urine Bilirubin - Negative Bedside Urine Ketone +/- 5 Urine Specific [place] 1.025 Bedside Urine Occult Blood - Negative Bedside Urine pH 5.5 Bedside Urine Protein - Negative Bedside Urine Urobilinogen - Negative Bedside Urine Nitrite - Negative Bedside Urine Leukocytes - Negative Esterase 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 Impression: Abdominal pain Qualifiers: Abdominal location: generalized Qualified Code(s): R10.84 - Generalized abdominal pain Nausea & vomiting Qualifiers: Vomiting type: unspecified Vomiting Intractability: non-intractable Qualified Code(s): R11.2 - Nausea with vomiting, unspecified Discharge Date/Time: 01/09/19 17:10 Interventions: ED Discharge Assessment Last Done: 01/09/19 17:09 Instructions: DI for Abdominal Pain-Adult, DI for Diarrhea and Traveler's Diarrhea -- Adult, DI for Nausea -- Adult, DI for Vomiting -- Adult Activity Restrictions/Additional Instructions: Please follow up with a primary care provider. I suggest small frequent amounts of fluid. I suggest a simple diet, low acid, no fried foods etc I have given you a prescription of a nausea medication. Please come back to the emergency department for any acute concerns such as inability keep down fluids, abdominal pain with fever, concern of appendicitis etc I have given contact information for the [facility] learning disabilities resource teacher, who can help you identify primary care provider Prescriptions: New ondansetron 4 mg tablet,disintegrating 4 mg PO Q6H PRN (Reason: nausea and vomiting) Qty: 20 RF: 0 Referrals: [facility] [Outside] Stand Alone Forms: Work Release Note <Leslie Lim DO - Last Filed: 01/10/19 07:37> Cosign ED Attending Cosignature Attestation: I was immediately available in the department for consultation. This documentation has been reviewed and I agree with assessment and plan. Supervised by Leslie Lim DO
--- NOTE | 2019-01-09 12:19 | ED_ITS ---
HPI - Nausea/Vomiting/Diarrhea <STEPHANIE Olivier - Last Filed: 01/09/19 19:09> General Chief complaint: Nausea/Vomiting/Diarrhea Stated complaint: Stomach issues Time Seen by Provider: 01/09/19 10:47 Source: patient and family Mode of arrival: ambulatory Limitations: no limitations History of Present Illness HPI Narrative: The patient is a 28-year-old male current marijuana smoker with history of ?stomach issues who presents with a chief complaint of nausea vomiting and diarrhea. He states that his general nausea vomiting and diarrhea is been going on since he was a teenager, and that he has episodes of this. He states that over the past month diarrhea has been getting worse. He states that today he just felt as though he could not go to work, so he came in. He complains of generalized abdominal pain, not localized anywhere. He states he last vomited yesterday. Denies dysuria urgency or frequency. Admits to daily marijuana smoking recently. Denies any fevers but complains of some chills. Denies any chest pain, coughing or shortness of breath. Related Data Previous Rx's Medication Instructions Recorded ondansetron 4 mg PO Q6H PRN #20 tab 01/09/19 Allergies Allergy/AdvReac Type Severity Reaction Status Date / Time codeine [CODEINE] Allergy Intermediate rash Verified 01/09/19 09:53 Review of Systems <STEPHANIE Olivier - Last Filed: 01/09/19 19:09> Review of Systems GENERAL: Denies chills, fatigue, malaise, fever, sweats. HEENT: Denies sinus pain, ear pain, sore throat, difficulty swallowing, dizziness. RESPIRATORY: Denies dyspnea, cough, wheezing, hemoptysis, sputum. CARDIOVASCULAR: Denies chest pain, palpitations, orthopnea, edema, GASTROINTESTINAL: See HPI : Denies dysuria, frequency, incontinence, hematuria, urinary retention. MUSCULOSKELETAL: denies weakness, joint pain, or bony pain SKIN: Denies rash, skin lesions, or other NEUROLOGIC: Denies weakness, headache, numbness, change in speech, confusion, seizures, incoordination. PSYCHIATRIC: No concerning psychosocial issues. 12 point review of systems is negative except for those stated above PFSH <STEPHANIE Olivier - Last Filed: 01/09/19 19:09> Medical History No significant past medical history (Acute) Social History Smoking Status: Current every day smoker Social History Smoking Status: Current every day smoker Exam <CHANNING Olivier - Last Filed: 01/09/19 19:09> Narrative Exam Narrative: GENERAL: This is a well-nourished, well-developed patient, in no acute distress HEAD: Atraumatic. Normocephalic. No temporal or scalp tenderness. EYES: Pupils equal round and reactive. Extraocular motions intact. No scleral icterus. No injection or drainage. ENT: Nose without bleeding, purulent drainage or septal hematoma. Throat without erythema, tonsillar hypertrophy or exudate. Uvula midline. Airway patent. NECK: Trachea midline. No JVD or lymphadenopathy. Supple, nontender, no meningeal signs. CARDIOVASCULAR: Regular rate and rhythm without murmurs, gallops, or rubs. RESPIRATORY: Clear to auscultation. Breath sounds equal bilaterally. No wheezes, rales, or rhonchi. GASTROINTESTINAL: Abdomen soft, diffusely tender nondistended. No hepato-s plenomegaly, or palpable masses. No guarding. No guarding, nonrigid abdomen, active bowel sounds all 4 quadrants. EXTREMITIES: No clubbing, cyanosis, or edema. No joint tenderness, effusion, or edema noted. BACK: Nontender without deformity or crepitance. No flank tenderness. NEURO: AOx3. SKIN: No rash or erythema. Initial Vital Signs Initial Vital Signs: Vital Signs Temperature 97.9 F 01/09/19 09:50 Pulse Rate 98 H 01/09/19 09:50 Respiratory Rate 18 01/09/19 09:50 Blood Pressure 140/95 H 01/09/19 09:50 Pulse Oximetry 97 01/09/19 09:50 <Leslie Lim DO - Last Filed: 01/10/19 07:37> Initial Vital Signs Initial Vital Signs: Vital Signs Temperature 97.9 F 01/09/19 09:50 Pulse Rate 98 H 01/09/19 09:50 Respiratory Rate 18 01/09/19 09:50 Blood Pressure 140/95 H 01/09/19 09:50 Pulse Oximetry 97 01/09/19 09:50 Course <AMAYA Olivier- - Last Filed: 01/09/19 19:09> Orders Ordered: Discontinued Medications Al Hydrox/Mg Hydrox/Simethicone 20 ml/ Lidocaine HCl 15 ml 0 ml PO NOW ONE Stop: 01/09/19 14:10 Last Admin: 01/09/19 15:04 Dose: 35 ml Sodium Chloride (Normal Saline 0.9%) 1,000 mls @ 1,000 mls/hr IV BOLUS ONE Stop: 01/09/19 11:09 Last Infusion: 01/09/19 11:59 Dose: 0 mls/hr Admin: 01/09/19 10:49 Dose: 1,000 mls/hr Sodium Chloride (Normal Saline 0.9%) 1,000 mls @ 1,000 mls/hr IV BOLUS ONE Stop: 01/09/19 12:39 Last Infusion: 01/09/19 14:46 Dose: 0 mls/hr Admin: 01/09/19 12:00 Dose: 1,000 mls/hr Ketorolac Tromethamine (Toradol) 30 mg IV NOW ONE Stop: 01/09/19 14:10 Last Admin: 01/09/19 15:04 Dose: 30 mg Ondansetron HCl (Zofran) 4 mg IV NOW ONE Stop: 01/09/19 10:10 Last Admin: 01/09/19 10:49 Dose: 4 mg Ondansetron HCl (Zofran) 4 mg IV NOW ONE Stop: 01/09/19 11:41 Last Admin: 01/09/19 11:57 Dose: 4 mg Pantoprazole Sodium (Protonix) 40 mg IV NOW ONE Stop: 01/09/19 14:10 Last Admin: 01/09/19 14:58 Dose: 40 mg Vital Signs - 8 hr 01/09/19 11:20 01/09/19 12:03 01/09/19 13:00 Temperature Pulse Rate 82 79 82 Respiratory Rate 17 16 16 Blood Pressure [Right Arm] 133/90 133/94 H 128/82 Pulse Oximetry 100 99 100 01/09/19 15:00 01/09/19 16:00 01/09/19 17:09 Temperature 98.1 F Pulse Rate 92 H 96 H 88 Respiratory Rate 17 17 17 Blood Pressure [Right Arm] 134/100 H 133/93 H 130/82 Pulse Oximetry 100 100 <Leslie Lim, - Last Filed: 01/10/19 07:37> Orders Ordered: Discontinued Medications Al Hydrox/Mg Hydrox/Simethicone 20 ml/ Lidocaine HCl 15 ml 0 ml PO NOW ONE Stop: 01/09/19 14:10 Last Admin: 01/09/19 15:04 Dose: 35 ml Sodium Chloride (Normal Saline 0.9%) 1,000 mls @ 1,000 mls/hr IV BOLUS ONE Stop: 01/09/19 11:09 Last Infusion: 01/09/19 11:59 Dose: 0 mls/hr Admin: 01/09/19 10:49 Dose: 1,000 mls/hr Sodium Chloride (Normal Saline 0.9%) 1,000 mls @ 1,000 mls/hr IV BOLUS ONE Stop: 01/09/19 12:39 Last Infusion: 01/09/19 14:46 Dose: 0 mls/hr Admin: 01/09/19 12:00 Dose: 1,000 mls/hr Ketorolac Tromethamine (Toradol) 30 mg IV NOW ONE Stop: 01/09/19 14:10 Last Admin: 01/09/19 15:04 Dose: 30 mg Ondansetron HCl (Zofran) 4 mg IV NOW ONE Stop: 01/09/19 10:10 Last Admin: 01/09/19 10:49 Dose: 4 mg Ondansetron HCl (Zofran) 4 mg IV NOW ONE Stop: 01/09/19 11:41 Last Admin: 01/09/19 11:57 Dose: 4 mg Pantoprazole Sodium (Protonix) 40 mg IV NOW ONE Stop: 01/09/19 14:10 Last Admin: 01/09/19 14:58 Dose: 40 mg Vital Signs - 8 hr 01/09/19 11:20 01/09/19 12:03 01/09/19 13:00 Temperature Pulse Rate 82 79 82 Respiratory Rate 17 16 16 Blood Pressure [Right Arm] 133/90 133/94 H 128/82 Pulse Oximetry 100 99 100 01/09/19 15:00 01/09/19 16:00 01/09/19 17:09 Temperature 98.1 F Pulse Rate 92 H 96 H 88 Respiratory Rate 17 17 17 Blood Pressure [Right Arm] 134/100 H 133/93 H 130/82 Pulse Oximetry 100 100 MDM - Nausea/Vomiting/Diarrhea <Leslie Mari CYTOLOGY TECHNOLOGIST-BC - Last Filed: 01/09/19 19:09> Lab Data Result diagrams: 01/09/19 10:36 01/09/19 10:36 Lab Results 01/09/19 01/09/19 01/09/19 Range/Units 10:36 10:36 10:36 WBC 5.9 (4.5-11.0) X10^3/uL RBC 4.80 (4.5-5.9) X10^6/uL Hgb 10.8 L (13.5-17.5) g/dL Hct 34.1 L (41-53) % MCV 71.1 L (80-100) fL MCH 22.5 L (26-34) PG MCHC 31.6 (30-36) % RDW 16.2 H (11.6-14.8) % Plt Count 368 (150-400) X10^3/uL Neut % (Auto) 67.2 (50-75) % Lymph % (Auto) 24.3 L (25-40) % Stanton % (Auto) 5.3 (3-14) % Eos % (Auto) 1.9 L (2-4) % Baso % (Auto) 1.3 (0-2) % Neut # (Auto) 4000 (4933-3838) /uL Lymph # (Auto) 1400 (6345-3639) /uL Stanton # (Auto) 300 (0-900) /uL Eos # (Auto) 100 (0-450) /uL Baso # (Auto) 100 (0-100) /uL PT 11.4 (10.1-12.7) SECONDS INR 1.0 (0.9-1.3) APTT 32 (26.4-36.2) SECONDS Sodium 141 (137-145) mmol/L Potassium 4.0 (3.4-5.1) mmol/L Chloride 105 (98-107) mmol/L Carbon Dioxide 21 L (22-32) mmol/L BUN 10 (9-20) mg/dL Creatinine 0.80 (0.66-1.25) mg/dL Estimated GFR > 60.0 (>60) mL/min BUN/Creatinine Ratio 12.5 (6-22) Glucose 100 (70-100) mg/dL Calcium 9.2 (8.4-10.2) mg/dL Total Bilirubin 0.4 (0.2-1.3) mg/dL AST 105 H (17-59) IU/L ALT 139 H (21-72) IU/L Alkaline Phosphatase 112 (38-126) U/L Total Protein 7.8 (6.3-8.2) g/dL Albumin 4.7 (3.5-5.0) g/dL Globulin 3.1 (1.7-4.1) g/dL Albumin/Globulin Ratio 1.5 (1.0-2.8) Lipase 68 (23-300) U/L Procalcitonin (<0.5) ng/mL Urine Opiates Screen (Negative) Ur Oxycodone Screen (Negative) Urine Methadone Screen (Negative) Ur Barbiturates Screen (Negative) U Tricyclic Antidepress (Negative) Ur Phencyclidine Scrn (Negative) Ur Amphetamines Screen (Negative) U Methamphetamines Scrn (Negative) Ur MDMA Scrn (Ecstasy) (Negative) U Benzodiazepines Scrn (Negative) Urine Cocaine Screen (Negative) U Marijuana (THC) Screen (Negative) 01/09/19 01/09/19 Range/Units 10:36 14:06 WBC (4.5-11.0) X10^3/uL RBC (4.5-5.9) X10^6/uL Hgb (13.5-17.5) g/dL Hct (41-53) % MCV (80-100) fL MCH (26-34) PG MCHC (30-36) % RDW (11.6-14.8) % Plt Count (150-400) X10^3/uL Neut % (Auto) (50-75) % Lymph % (Auto) (25-40) % Stanton % (Auto) (3-14) % Eos % (Auto) (2-4) % Baso % (Auto) (0-2) % Neut # (Auto) (6691-2224) /uL Lymph # (Auto) (2525-0036) /uL Stanton # (Auto) (0-900) /uL Eos # (Auto) (0-450) /uL Baso # (Auto) (0-100) /uL PT (10.1-12.7) SECONDS INR (0.9-1.3) APTT (26.4-36.2) SECONDS Sodium (137-145) mmol/L Potassium (3.4-5.1) mmol/L Chloride (98-107) mmol/L Carbon Dioxide (22-32) mmol/L BUN (9-20) mg/dL Creatinine (0.66-1.25) mg/dL Estimated GFR (>60) mL/min BUN/Creatinine Ratio (6-22) Glucose (70-100) mg/dL Calcium (8.4-10.2) mg/dL Total Bilirubin (0.2-1.3) mg/dL AST (17-59) IU/L ALT (21-72) IU/L Alkaline Phosphatase (38-126) U/L Total Protein (6.3-8.2) g/dL Albumin (3.5-5.0) g/dL Globulin (1.7-4.1) g/dL Albumin/Globulin Ratio (1.0-2.8) Lipase (23-300) U/L Procalcitonin < 0.05 (<0.5) ng/mL Urine Opiates Screen Negative (Negative) Ur Oxycodone Screen Negative (Negative) Urine Methadone Screen Negative (Negative) Ur Barbiturates Screen Negative (Negative) U Tricyclic Antidepress Negative (Negative) Ur Phencyclidine Scrn Negative (Negative) Ur Amphetamines Screen Negative (Negative) U Methamphetamines Scrn Negative (Negative) Ur MDMA Scrn (Ecstasy) Negative (Negative) U Benzodiazepines Scrn Negative (Negative) Urine Cocaine Screen Negative (Negative) U Marijuana (THC) Screen Positive H (Negative) Urine Dip Bedside Urine Glucose Negative Bedside Urine Bilirubin - Negative Bedside Urine Ketone +/- 5 Urine Specific [place] 1.025 Bedside Urine Occult Blood - Negative Bedside Urine pH 5.5 Bedside Urine Protein - Negative Bedside Urine Urobilinogen - Negative Bedside Urine Nitrite - Negative Bedside Urine Leukocytes - Negative Esterase Imaging Data US - abdomen: Radiologist's impression: [address] [address] Ultrasound Report Signed Patient: Iain Mckeon [facility]#: [id number] : 1990Acct:[id number] Age/Sex: 28 / MDate of Service: 01/09/19 Loc: ED Accession Number: [id number] Procedure: US abdomen limited Ordering Provider: Leslie Mari PROCEDURE: US ABDOMEN LIMITED INDICATIONS: EPIGASTRIC PAIN TECHNIQUE: Real-time focused scanning was performed of the abdomen, with image documentation. COMPARISON: None. FINDINGS: Liver is normal in size. Increased liver parenchymal echotexture is seen. No discrete hepatic lesion. There is no gallstone. No gallbladder wall thickening or pericholecystic fluid. There is no intrahepatic biliary ductal dilatation. Mild prominence of common bile that measures up to 6.9 mm in diameter is seen. The visualized portion of pancreas shows no gross abnormality. IMPRESSION: 1. Hepatic steatosis. No discrete hepatic lesion. 2. Normal appearing gallbladder. No sonographic evidence of acute cholecystitis. 3. Mild prominence of common bile duct for patient's age. No gross choledocholithiasis. Dictated by: Prashanth Faust M.D. on 01/09/2019 at 13:30 Approved by: Prashanth Faust M.D. on 01/09/2019 at 13:32 MDM Narrative Medical decision making narrative: The patient is a 28-year-old male who presents with years of nausea vomiting and diarrhea. He states it waxes and wanes, comes and goes. He states has been worse over the past month. He endorses place stools. The patient does not have an acute abdominal exam. He does have some pain to palpation of right upper quadrant, so I obtained an ultrasound. This shows some fatty liver. He is able to take p.o.. He has been given IV fluid, Zofran, remains afebrile and states he is increasingly comfortable after Toradol and Protonix. He declined prescription of Protonix, but accepted a prescription of Zofran. This appears to be a chronic issue, stating that the patient has had these symptoms for the past several years. Of note the patient was unable to give a stool sample during a 6 hour ER stay, and ended up stating that he wanted to leave. I encouraged him to follow up with primary care physician gave him contact information for the health water resource specialist. I think this likely has a chronic issues such as colitis or Crohn's. Discussed at length coming back to the ER for any acute concerns was abdominal pain with fever, inability keep down fluids etc. No questions or concerns upon discharge. <Leslie Peter Lim, DO - Last Filed: 01/10/19 07:37> Lab Data Lab Results 01/09/19 01/09/19 01/09/19 Range/Units 10:36 10:36 10:36 WBC 5.9 (4.5-11.0) X10^3/uL RBC 4.80 (4.5-5.9) X10^6/uL Hgb 10.8 L (13.5-17.5) g/dL Hct 34.1 L (41-53) % MCV 71.1 L (80-100) fL MCH 22.5 L (26-34) PG MCHC 31.6 (30-36) % RDW 16.2 H (11.6-14.8) % Plt Count 368 (150-400) X10^3/uL Neut % (Auto) 67.2 (50-75) % Lymph % (Auto) 24.3 L (25-40) % Stanton % (Auto) 5.3 (3-14) % Eos % (Auto) 1.9 L (2-4) % Baso % (Auto) 1.3 (0-2) % Neut # (Auto) 4000 (7264-4285) /uL Lymph # (Auto) 1400 (1102-8662) /uL Stanton # (Auto) 300 (0-900) /uL Eos # (Auto) 100 (0-450) /uL Baso # (Auto) 100 (0-100) /uL PT 11.4 (10.1-12.7) SECONDS INR 1.0 (0.9-1.3) APTT 32 (26.4-36.2) SECONDS Sodium 141 (137-145) mmol/L Potassium 4.0 (3.4-5.1) mmol/L Chloride 105 (98-107) mmol/L Carbon Dioxide 21 L (22-32) mmol/L BUN 10 (9-20) mg/dL Creatinine 0.80 (0.66-1.25) mg/dL Estimated GFR > 60.0 (>60) mL/min BUN/Creatinine Ratio 12.5 (6-22) Glucose 100 (70-100) mg/dL Calcium 9.2 (8.4-10.2) mg/dL Total Bilirubin 0.4 (0.2-1.3) mg/dL AST 105 H (17-59) IU/L ALT 139 H (21-72) IU/L Alkaline Phosphatase 112 (38-126) U/L Total Protein 7.8 (6.3-8.2) g/dL Albumin 4.7 (3.5-5.0) g/dL Globulin 3.1 (1.7-4.1) g/dL Albumin/Globulin Ratio 1.5 (1.0-2.8) Lipase 68 (23-300) U/L Procalcitonin (<0.5) ng/mL Urine Opiates Screen (Negative) Ur Oxycodone Screen (Negative) Urine Methadone Screen (Negative) Ur Barbiturates Screen (Negative) U Tricyclic Antidepress (Negative) Ur Phencyclidine Scrn (Negative) Ur Amphetamines Screen (Negative) U Methamphetamines Scrn (Negative) Ur MDMA Scrn (Ecstasy) (Negative) U Benzodiazepines Scrn (Negative) Urine Cocaine Screen (Negative) U Marijuana (THC) Screen (Negative) 01/09/19 01/09/19 Range/Units 10:36 14:06 WBC (4.5-11.0) X10^3/uL RBC (4.5-5.9) X10^6/uL Hgb (13.5-17.5) g/dL Hct (41-53) % MCV (80-100) fL MCH (26-34) PG MCHC (30-36) % RDW (11.6-14.8) % Plt Count (150-400) X10^3/uL Neut % (Auto) (50-75) % Lymph % (Auto) (25-40) % Stanton % (Auto) (3-14) % Eos % (Auto) (2-4) % Baso % (Auto) (0-2) % Neut # (Auto) (2472-1846) /uL Lymph # (Auto) (3864-9569) /uL Stanton # (Auto) (0-900) /uL Eos # (Auto) (0-450) /uL Baso # (Auto) (0-100) /uL PT (10.1-12.7) SECONDS INR (0.9-1.3) APTT (26.4-36.2) SECONDS Sodium (137-145) mmol/L Potassium (3.4-5.1) mmol/L Chloride (98-107) mmol/L Carbon Dioxide (22-32) mmol/L BUN (9-20) mg/dL Creatinine (0.66-1.25) mg/dL Estimated GFR (>60) mL/min BUN/Creatinine Ratio (6-22) Glucose (70-100) mg/dL Calcium (8.4-10.2) mg/dL Total Bilirubin (0.2-1.3) mg/dL AST (17-59) IU/L ALT (21-72) IU/L Alkaline Phosphatase (38-126) U/L Total Protein (6.3-8.2) g/dL Albumin (3.5-5.0) g/dL Globulin (1.7-4.1) g/dL Albumin/Globulin Ratio (1.0-2.8) Lipase (23-300) U/L Procalcitonin < 0.05 (<0.5) ng/mL Urine Opiates Screen Negative (Negative) Ur Oxycodone Screen Negative (Negative) Urine Methadone Screen Negative (Negative) Ur Barbiturates Screen Negative (Negative) U Tricyclic Antidepress Negative (Negative) Ur Phencyclidine Scrn Negative (Negative) Ur Amphetamines Screen Negative (Negative) U Methamphetamines Scrn Negative (Negative) Ur MDMA Scrn (Ecstasy) Negative (Negative) U Benzodiazepines Scrn Negative (Negative) Urine Cocaine Screen Negative (Negative) U Marijuana (THC) Screen Positive H (Negative) Urine Dip Bedside Urine Glucose Negative Bedside Urine Bilirubin - Negative Bedside Urine Ketone +/- 5 Urine Specific [place] 1.025 Bedside Urine Occult Blood - Negative Bedside Urine pH 5.5 Bedside Urine Protein - Negative Bedside Urine Urobilinogen - Negative Bedside Urine Nitrite - Negative Bedside Urine Leukocytes - Negative Esterase 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 Impression: Abdominal pain Qualifiers: Abdominal location: generalized Qualified Code(s): R10.84 - Generalized abdominal pain Nausea & vomiting Qualifiers: Vomiting type: unspecified Vomiting Intractability: non-intractable Qualified Code(s): R11.2 - Nausea with vomiting, unspecified Discharge Date/Time: 01/09/19 17:10 Interventions: ED Discharge Assessment Last Done: 01/09/19 17:09 Instructions: DI for Abdominal Pain-Adult, DI for Diarrhea and Traveler's Diarrhea -- Adult, DI for Nausea -- Adult, DI for Vomiting -- Adult Activity Restrictions/Additional Instructions: Please follow up with a primary care provider. I suggest small frequent amounts of fluid. I suggest a simple diet, low acid, no fried foods etc I have given you a prescription of a nausea medication. Please come back to the emergency department for any acute concerns such as inability keep down fluids, abdominal pain with fever, concern of appendicitis etc I have given contact information for the [facility] water resource specialist, who can help you identify primary care provider Prescriptions: New ondansetron 4 mg tablet,disintegrating 4 mg PO Q6H PRN (Reason: nausea and vomiting) Qty: 20 RF: 0 Referrals: [facility] [Outside] Stand Alone Forms: Work Release Note <Leslie Lim DO - Last Filed: 01/10/19 07:37> Cosign ED Attending Cosjudyature Attestation: I was immediately available in the department for consultation. This documentation has been reviewed and I agree with assessment and plan. Supervised by Leslie Lim DO
--- NOTE | 2019-01-09 13:49 | DI.US.S_ITS ---
PROCEDURE: US ABDOMEN LIMITED INDICATIONS: EPIGASTRIC PAIN TECHNIQUE: Real-time focused scanning was performed of the abdomen, with image documentation. COMPARISON: None. FINDINGS: Liver is normal in size. Increased liver parenchymal echotexture is seen. No discrete hepatic lesion. There is no gallstone. No gallbladder wall thickening or pericholecystic fluid. There is no intrahepatic biliary ductal dilatation. Mild prominence of common bile that measures up to 6.9 mm in diameter is seen. The visualized portion of pancreas shows no gross abnormality. IMPRESSION: 1. Hepatic steatosis. No discrete hepatic lesion. 2. Normal appearing gallbladder. No sonographic evidence of acute cholecystitis. 3. Mild prominence of common bile duct for patient's age. No gross choledocholithiasis. Dictated by: Prashanth Faust M.D. on 01/09/2019 at 13:30 Approved by: Prashanth Faust M.D. on 01/09/2019 at 13:32
[2019-01-09 14:25] LABS: Urine Amphetamines Negative (Negative); Urine Barbiturates Negative (Negative); Urine Benzodiazepines Negative (Negative); Urine Cocaine Negative (Negative); Urine MDMA Negative (Negative); Urine Methadone Negative (Negative); Urine Methamphetamines Negative (Negative); Urine Morphine/Opi cutoff 2000 Negative (Negative); Urine Oxycodone Negative (Negative); Urine Phencyclidine Negative (Negative); Urine Tetrahydrocannabinol Positive (Negative); Urine Tricyclic Antidepressant Negative (Negative)
[2019-01-09] MEDS: PANTOPRAZOLE 40 MG VIAL IV (14:58)
[2019-01-09] MEDS: KETOROLAC 60 MG/2 ML VIAL 30 MG IV (15:04)
[2019-01-09] MEDS: MAG HYDROX/ALUMINUM/SIMETH SUS 20 ML, LIDOCAINE VISCOUS 2% 15 ML PO (15:04)
== END 2019-01-09 17:10 | disposition home or self-care (01) ==
PROVIDERS: Emergency Medicine; Emergency Provider Nurse Practitioner Family
DX: R10.84 Generalized abdominal pain (principal); R11.2 Nausea with vomiting, unspecified
CPT/HCPCS: 36591; 76705; 80053; 80305; 81003; 83690; 84145; 85025; 85610; 85730; 96361; 96374; 96375; 96376; 99284; C9113; J1885; J2405

== ENCOUNTER → 2020-09-15 14:27 | Outpatient (CLI) | payer OTHER, MEDICAID, SELFPAY ==
--- NOTE | 2020-09-15 14:31 | DI.RAD.S_ITS ---
PROCEDURE: XR CHEST 2V INDICATIONS: Chest pain TECHNIQUE: 2 views of the chest were acquired. COMPARISON: [facility], , CHEST 2 VIEW, 06/18/2014, 9:52. FINDINGS: Surgical changes and devices: None. Lungs and pleura: Lungs are clear. No pleural effusions or pneumothorax. Mediastinum: Mediastinal contours are normal. Heart size is normal. Bones and chest wall: No suspicious bony abnormalities. Soft tissues appear unremarkable. IMPRESSION: No acute cardiopulmonary disease. Dictated by: Unique Davis M.D. on 09/15/2020 at 14:50 Approved by: Unique Davis M.D. on 09/15/2020 at 14:51
== END ==
PROVIDERS: PCP Student in an Organized Health Care Education/Training Program; Referring Provider Student in an Organized Health Care Education/Training Program; Visit Provider Student in an Organized Health Care Education/Training Program
DX: R07.9 Chest pain, unspecified (principal)
CPT/HCPCS: 71046

== ENCOUNTER → 2020-09-23 10:57 | Outpatient (CLI) | payer OTHER, MEDICAID, SELFPAY ==
[2020-09-23 13:15] LABS: COVID19 -Nasal RAPID Negative (Negative)
== END ==
PROVIDERS: PCP Student in an Organized Health Care Education/Training Program; Visit Provider Student in an Organized Health Care Education/Training Program
DX: Z20.822 Contact with and (suspected) exposure to COVID-19 (principal)
CPT/HCPCS: 87635

== ENCOUNTER → 2020-09-24 15:05 | Outpatient (CLI) | payer OTHER, MEDICAID, SELFPAY ==
--- NOTE | 2020-09-24 18:30 | DI.NM.S_ITS ---
DATE OF SERVICE: 09/24/2020 PROCEDURE: Exercise stress test. INDICATION: Chest pain, syncope, history of anxiety, alcohol use. CARDIAC STRESS: The patient underwent exercise stress test under the supervision of an attending staff. The patient walked on Ramiro protocol for 4 minutes 32 seconds. Achieved 96 percent of target heart rate. Initial blood pressure 136/88. Peak blood pressure 160/76. Maximum heart rate achieved 181 percent. Achieved 7 METs of workload. The patient had mid sternal 6/10 chest discomfort at peak exercise, which got dissipated in early recovery. Functional aerobic impairment positive 63 percent. Baseline rhythm was sinus to sinus tachycardia up to heart rate of 115 beats per minute. During exercise ,there was enhanced chronotropic response. Within first stage, his heart rate went up to 169 beats per minute. There were no convincing ischemic changes. In late recovery, there was some ST flattening in inferolateral leads without any convincing ischemic changes. There were no new significant arrhythmias other than sinus tachycardia. CONCLUSION: Exercise stress test is negative for obvious inducible ischemia. There were no significant arrhythmias. Normal blood pressure response. Baseline sinus tachycardia with enhanced chronotropic response. Poor exercise tolerance. Had 6/10 midsternal chest discomfort at peak exercise, which got dissipated quickly. Iain Mckeon - HORACIO/subha/christina doc#: [id number]/job#: [id number] dd: 09/24/2020 17:37:00 dt: 09/24/2020 18:21:00 DICTATING /COPIES TO: Shayy Kulkarni MD COPIES MNE: SELENE;
== END ==
PROVIDERS: PCP Student in an Organized Health Care Education/Training Program; Referring Provider Student in an Organized Health Care Education/Training Program; Visit Provider Student in an Organized Health Care Education/Training Program
DX: R07.9 Chest pain, unspecified (principal); R55 Syncope and collapse
CPT/HCPCS: 93017

== ENCOUNTER → 2020-10-26 07:46 | Outpatient (CLI) | payer OTHER, MEDICAID, SELFPAY ==
--- NOTE | 2020-10-26 07:47 | DI.ECHO.S_ITS ---
[facility] +---------+ : : [address] : [address] : : : : [id number] : : : : Phone: [phone]+ Echocardiogram Report + + :Name: BILLIE MCKEE Study Date: 10/26/2020 Height: 70.5 in: :[facility] ReadingLocation: Weight: 197 lb : : Gender: Male BSA: 2.1 m2 : :: 1990 Age: 30 yrs BP: 146/93 mmHg: :Reason For Study: CHEST PAIN, SYNCOPE : :Ordering Physician: GABI, : :CARRIE Performed By: Naila Rich : :Referring: CARRIE ASHLEY : + + Interpretation Summary 1) Normal left ventricular thickness, size, wall motion, and systolic function (EF 60-65%). 2) Normal right ventricular size and function. 3) No significant valvular abnormalities. 4) No prior Echo available for comparison. Procedure: A two-dimensional transthoracic echocardiogram with color flow and Doppler was performed. The study quality was technically adequate. There is no prior echocardiogram noted for this patient. The patient was in sinus rhythm with heart rates between 84-95 bpm during the exam. Left Ventricle: The left ventricle is normal in size and wall thickness. The ejection fraction is estimated to be 60-65%. Left ventricular systolic function appears normal without focal wall motion abnormalities. Diastolic parameters suggest probable normal left ventricular diastolic function and normal filling pressures. Right Ventricle: The right ventricle is normal in size and function. Atria: The left atrial size is normal. Right atrial size is normal. There is no Doppler evidence for an interatrial shunt. Mitral Valve: The mitral valve is normal in structure and function. There is no mitral regurgitation noted. Aortic Valve: The aortic valve is trileaflet. The aortic valve opens well. There is no aortic valve stenosis. No aortic regurgitation is present. Tricuspid Valve: The tricuspid valve is normal in structure and function. No tricuspid regurgitation. Pulmonary artery pressures cannot be estimated because of the lack of a measurable TR jet velocity but the IVC suggests a CVP of around 3 mmHg. Pulmonic Valve: The pulmonic valve is not well seen, but is grossly normal. There is no pulmonic valvular regurgitation. Great Vessels: The aortic root is normal size. The dimensions of the ascending aorta are normal. The IVC is of normal diameter and collapses greater than 50% with a sniff. This suggests a low right atrial pressure of 3 mm Hg. Pericardium/ Pleura There is no pericardial effusion. There is no pleural effusion. MMode/2D Measurements & Calculations LVIDd: 5.2 cm LVOT diam: 2.4 cm LVIDs: 3.7 cm Ao root diam: 3.6 cm FS: 28.1 % asc Aorta Diam: 3.1 cm EPSS: 0.70 cm Ao Arch Diam (Prox Trans): 2.8 cm IVSd: 0.88 cm LVPWd: 0.73 cm LV roper. diameter/BSA (cm/m^2): 2.5 LV sys. diameter/BSA (cm/m^2): 1.8 LA A2 area: 19.8 cm2 RA long axis: 4.9 cm LA A4 area: 18.0 cm2 RA area: 18.6 cm2 LA length (vol): 5.1 cm RA vol: 60.6 ml LA vol: 58.8 ml RA : 29.1 ml/m2 LA vol index: 28.2 ml/m2 IVC diam: 1.1 cm RVD1 (basal): 3.5 cm TAPSE: 2.6 cm Doppler Measurements & Calculations Ao V2 max: 105.6 cm/sec LVOT Max Jorge: 96.5 cm/sec Ao V2 mean: 76.8 cm/sec LV V1 max P.7 mmHg Ao max P.5 mmHg LV V1 VTI: 20.1 cm Ao mean P.6 mmHg GREGORIO(I,D): 4.2 cm2 Ao V2 VTI: 21.6 cm GREGORIO(V,D): 4.2 cm2 sev ratio: 0.93 GREGORIO indexed to BSA (cm^2/m^2): 2.0 MV E max jorge: 77.3 cm/sec PA V2 max: 93.8 cm/sec MV A max jorge: 63.2 cm/sec PA V2 mean: 66.5 cm/sec MV E/A: 1.2 PA mean P.0 mmHg Med Peak E' Jorge: 9.5 cm/sec PA pr(Accel): 32.8 mmHg E/E' med: 8.1 Lat Peak E' Jorge: 12.1 cm/sec E/E' lat: 6.4 E/e' average: 7.3 MV dec time: 0.12 sec SV(LVOT): 91.7 ml Reading Physician:01:05 PM
== END ==
PROVIDERS: PCP Student in an Organized Health Care Education/Training Program; Referring Provider Student in an Organized Health Care Education/Training Program; Visit Provider Student in an Organized Health Care Education/Training Program
DX: R07.9 Chest pain, unspecified (principal); R55 Syncope and collapse
CPT/HCPCS: 93306

== ENCOUNTER 2020-10-27 09:06 | Emergency (ER) | payer OTHER, MEDICAID, SELFPAY ==
[2020-10-27] VITALS (7 sets, daily range): BP systolic 126–152; BP diastolic 78–100; PULSE 87–110; RESP 19–45; TEMP 37.1; O2SAT 98–100; BMI 27.2
--- NOTE | 2020-10-27 09:07 | ED_ITS ---
HPI - General Adult General Chief complaint: Arrhythmia/Palpitations Stated complaint: CHEST PAIN Time Seen by Provider: 10/27/20 09:06 Source: patient Mode of arrival: Ambulatory Limitations: no limitations History of Present Illness HPI narrative: Patient is a 30-year-old male. Has a history of alcohol abuse. Also has a history of GI bleed and anemia related to this. Has had chest discomfort and palpitations for several weeks now. Has seen his primary doctor for this. He is not on any anxiety medications although he states he has talk with his primary doctor about this. He does admit that his anxiety has been high after having a discussion with his primary doctor. He had a stress test approximately 1 month ago that was unremarkable. He states he had an echocardiogram done yesterday. He reports decreased ability to sleep over the past week. He is unsure as to why this is going on. He states he has never withdrawn from alcohol before. His last alcohol drink was a couple days ago. He does state that he feels like his heart is beating fast. I woke him from sleep at approximately 0200 hours this morning. This is what has been happening to him every night for the past week. Related Data Home Medications Medication Instructions Recorded Confirmed alprazolam 1 mg PO ONCE PRN 10/27/20 10/27/20 Previous Rx's Medication Instructions Recorded lorazepam [Ativan] 0.5 mg PO BID PRN #6 tab 10/27/20 Allergies Allergy/AdvReac Type Severity Reaction Status Date / Time codeine [CODEINE] Allergy Intermediate rash Verified 10/01/20 12:58 Review of Systems Constitutional Constitutional: Denies fever(s) and Reports weakness Cardiovascular Cardiovascular: Reports chest pain, Reports rapid heart rate and Denies dyspnea Respiratory Respiratory: Denies cough and Denies dyspnea Gastrointestinal Gastrointestinal: Denies abdominal pain Genitourinary Genitourinary: Reports system reviewed and no additional complaints, except as documented Musculoskeletal Musculoskeletal: Reports system reviewed and no additional complaints, except as documented Integumentary/Breasts Skin/Breast: Reports system reviewed and no additional complaints, except as documented Neurologic Neurologic: Reports weakness Psychiatric Psychiatric: Reports anxiety Endocrine Endocrine: Reports system reviewed and no additional complaints, except as documented Hematologic/Lymphatic On Anticoagulants: No Allergic/Immunologic Allergic/Immunologic: Reports system reviewed and no additional complaints, exce pt as documented Patient History Medical History GI bleed Pilonidal cyst without infection Surgical History (Updated 08/15/19 @ 20:10 by Martha Phillips) Anesthesia History of colonoscopy History of endoscopy Family History (Updated 08/15/19 @ 20:12 by Martha Phillips) Father Stroke Mother Alcoholic Grandmother Cancer Diabetes mellitus Hyperlipidemia Hypertension Social History Smoking Status: Current every day smoker Smoking Status: Current every day smoker alcohol intake frequency: 0-2 drinks per day Substance Use Type: marijuana Exam Initial Vital Signs Initial Vital Signs: Vital Signs Temperature 98.7 F 10/27/20 09:16 Pulse Rate 110 H 10/27/20 09:16 Respiratory Rate 22 10/27/20 09:16 Blood Pressure 152/98 H 10/27/20 09:16 Pulse Oximetry 98 10/27/20 09:16 Const General: cooperative and anxious Limitations: mental status not altered HENMT Head: normal to inspection and normocephalic Resp Effort & Inspection: normal respiratory effort Auscultation: clear to auscultation bilaterally Cardio Rate: tachycardic Rhythm: regular rhythm GI Inspection: non-distended Palpation: soft Skin Lesions: no lesions Rashes: no rashes Neuro General: patient alert and patient awake Cognition: normal cognition Speech: speech normal Extrem General: normal to inspection and capillary refill normal Psych Appearance: grossly normal and well kempt Scores GCS [place] coma scale eye opening: Spontaneous [place] coma scale verbal response: Orientated Delbert coma scale motor response: Obey commands Delbert coma scale total score: 15 Course Orders Ordered: ED Orders 10/27/20 09:07 XR chest 1V Stat 10/27/20 09:11 EKG-12 Lead Stat 10/27/20 10:15 EKG-12 Lead Stat Discontinued Medications Lorazepam (Lorazepam 0.5 Mg Tablet) 1 mg PO NOW ONE Stop: 10/27/20 09:15 Last Admin: 10/27/20 09:26 Dose: 1 mg Documented by: MAURICIO Vital Signs Vital signs: Vital Signs - 8 hr 10/27/20 09:16 10/27/20 09:27 10/27/20 09:30 Temperature 98.7 F Pulse Rate 110 H 104 H 96 H Respiratory Rate 22 34 H 35 H Blood Pressure 152/98 H 141/87 H 133/78 Pulse Oximetry 98 100 100 10/27/20 10:00 Temperature Pulse Rate 91 H Respiratory Rate 22 Blood Pressure 128/79 Pulse Oximetry 100 Medical Decision Making Imaging Data Chest x-ray: Radiologist's Impression: [place] [id number] [place] [id number] ReportSigned Patient: Iain Mckeon MMR#: [id number]: 1990Acct:[id number]/Sex: 30 / MDate of Service: 10/27/20Loc: EDAccession Number: [id number] Procedure: XR chest 1V Ordering Provider: Wilbur Pike D.O. PROCEDURE: XR CHEST 1V INDICATIONS: Chest pain TECHNIQUE: One view of the chest was acquired. COMPARISON: [facility], CHEST 2 VIEW, 06/18/2014, 9:52. FINDINGS: Surgical changes and devices: None. Lungs and pleura: Lungs are clear. No pleural effusions or pneumothorax. Mediastinum: Mediastinal contours appear normal. Heart size is normal. Bones and chest wall: No suspicious bony lesions. Overlying soft tissues appear unremarkable. IMPRESSION: No acute cardiopulmonary disease process. Dictated by: Balbina Cardenas MD, PhD on 10/27/2020 at 9:51 Approved by: Balbina Cardenas MD, PhD on 10/27/2020 at 9:52 ECG Data Attestation: I personally reviewed and interpreted this ECG as follows: Prior ECG tracings: not available for review Interpretation: Sinus tachycardia Ventricular rate of 113 Normal axis Normal QRS Normal QTC No ST T wave changes Repeat EKG Sinus rhythm Ventricular rate 92 Normal axis Normal QRS Normal QTC No ST T wave changes MDM Narrative Medical decision making narrative: Patient's EKGs have been unremarkable. Has had no ectopy on the monitor. He does feel somewhat better after the Ativan. Has had a fairly significant cardiac workup recently with a normal stress test. I suspect that his symptoms today are anxiety related. Informed him that he needed talk with his primary doctor about the indications for a Holter monitor. He is given return precautions. He expressed understanding and agreement. 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 Impression: Palpitations Instructions: DI for Palpitations Activity Restrictions/Additional Instructions: I recommend that you talk with your primary doctor about the indications for a Holter monitor. That would be the next step in your workup. Return to the emergency department for any new or worsening symptoms Prescriptions: New lorazepam [Ativan] 0.5 mg tablet 0.5 mg PO BID PRN (Reason: anxiety) Qty: 6 RF: 0 No Action alprazolam 1 mg tablet 1 mg PO ONCE PRN (Reason: Anxiety) RF: 0 Referrals: Seymour Hanson MD [Primary Care Provider] - Stand Alone Forms: Work Release Note
[2020-10-27] MEDS: LORazepam 0.5 MG TABLET 1 MG PO (09:26)
== END 2020-10-27 11:34 | disposition home or self-care (01) ==
PROVIDERS: Emergency Provider Emergency Medicine; PCP Student in an Organized Health Care Education/Training Program
DX: R00.2 Palpitations (principal)
CPT/HCPCS: 71045; 93005; 99284

== ENCOUNTER → 2021-04-22 16:01 | Outpatient (CLI) | payer OTHER, MEDICAID, SELFPAY ==
[2021-04-22 16:35] LABS: COVID19 -Nasal RAPID Negative (Negative)
== END ==
PROVIDERS: PCP Student in an Organized Health Care Education/Training Program; Visit Provider Physician Assistant
DX: Z20.822 Contact with and (suspected) exposure to COVID-19 (principal); J02.9 Acute pharyngitis, unspecified
CPT/HCPCS: 87070; 87635; 87880

== ENCOUNTER → 2021-11-25 08:06 | Outpatient (CLI) | payer OTHER, MEDICAID, SELFPAY ==
[2021-11-25 08:17] LABS: Basophils Absolute Auto 100 /uL (0-100); Basophils Percent Auto 1.4 % (0-2); Eosinophils Absolute Auto 100 /uL (0-450); Eosinophils Percent Auto 1.2 % (2-4); Hematocrit 32.7 % (41-53); Hemoglobin 9.9 g/dL (13.5-17.5); Lymphocytes Absolute Auto 1300 /uL (1100-4500); Lymphocytes Percent Auto 24.4 % (25-40); Mean Corpuscular HGB Conc 30.3 % (30-36); Mean Corpuscular Hemoglobin 19.1 PG (26-34); Monocytes Absolute Auto 400 /uL (0-900); Monocytes Percent Auto 7.7 % (3-14); Neutrophils Absolute Auto 3400 /uL (1500-7000); Neutrophils Percent Auto 65.3 % (50-75); Platelet Count 406 X10^3/uL (150-400); Red Blood Cell Count 5.19 X10^6/uL (4.5-5.9); Red Cell Distribution Width 18.4 % (11.6-14.8); White Blood Cell Count 5.3 X10^3/uL (4.5-11.0)
[2021-11-25 08:19] LABS: Add Manual Diff / Slide Review SLIDE REVIEW
[2021-11-25 08:33] LABS: Anisocytosis 1+; Hypochromasia 2+; Microcytosis 2+; Ovalocytes 1+
[2021-11-25 09:10] LABS: Vitamin D 25 Hydroxy (D3) 25.9 ng/mL (30.0-100.0)
[2021-11-26 04:38] LABS: HEMOLYSIS < 15 (0-50)
[2021-11-26 04:41] LABS: Alanine Aminotransferase 146 IU/L (<50); Albumin 5.1 g/dL (3.5-5.0); Albumin Globulin Ratio 1.7 (1.0-2.8); Alkaline Phosphatase 104 U/L (38-126); Aspartate Aminotransferase 145 IU/L (17-59); BUN Creatinine Ratio 17.5 (6-22); Bilirubin Total 0.8 mg/dL (0.2-1.3); Blood Urea Nitrogen 14 mg/dL (9-20); Calcium 9.6 mg/dL (8.4-10.2); Carbon Dioxide 24 mmol/L (22-32); Chloride 104 mmol/L (98-107); Estimated Glomerular Filt Rate > 60 mL/min (>60); Free T3, Triiodothyronine Free 4.38 pg/mL (2.77-5.27); Free T4, Direct Thyroxine 0.99 ng/dL (0.78-2.19); Glucose 149 mg/dL (70-100); Potassium 4.2 mmol/L (3.4-5.1); Sodium 139 mmol/L (137-145); Total Protein 8.1 g/dL (6.3-8.2)
[2021-11-26 04:55] LABS: Thyroid Stimulating Hormone 3.44 uIU/mL (0.47-4.68)
[2021-11-26 05:35] LABS: Vitamin B12 482 pg/mL (239-931)
[2021-11-27 12:31] LABS: Gamma Glutamyl Transpeptidase 199 U/L (15-73); HEMOLYSIS < 15 (0-50); Iron 47 ug/dL (49-181); Lactate Dehydrogenase 648 U/L (313-618); Lipase 89 U/L (23-300)
[2021-11-27 12:42] LABS: Percent Iron Saturation 8 % (20-50); Total Iron Binding Capacity 557 ug/dL (261-462); Transferrin 512 mg/dL (206-381)
[2021-11-27 13:26] LABS: Ferritin 7 ng/mL (18-464)
[2021-11-28 08:45] LABS: HBsAg Screen Negative (Negative); Hepatitis A Antibody IgM Negative (Negative); Hepatitis B Core Antibody IgM Negative (Negative); Hepatitis C Antibody <0.1 s/co ratio (0.0-0.9)
[2021-12-02 12:55] LABS: Aldosterone/Renin Activity Rat 2.6 (0.0-30.0); Plama Renin, LC/MS/MS 1.145 ng/mL/hr (0.167-5.380)
== END ==
PROVIDERS: PCP Student in an Organized Health Care Education/Training Program; Visit Provider Student in an Organized Health Care Education/Training Program
DX: R00.2 Palpitations (principal); R07.9 Chest pain, unspecified; D50.0 Iron deficiency anemia secondary to blood loss (chronic); F10.21 Alcohol dependence, in remission; I16.0 Hypertensive urgency
CPT/HCPCS: 80053; 80074; 82088; 82306; 82533; 82607; 82728; 82977; 83540; 83550; 83615; 83690; 84244; 84439; 84443; 84481; 85025

== ENCOUNTER 2021-12-23 10:05 | Emergency (ER) | payer OTHER, MEDICAID, SELFPAY ==
[2021-12-23 10:10] VITALS: BP 156/100; PULSE 91; RESP 16; TEMP 36.7; O2SAT 99; BMI 31.5
--- NOTE | 2021-12-23 10:14 | DI.RAD.S_ITS ---
PROCEDURE: XR CHEST 1V INDICATIONS: Chest pain TECHNIQUE: One view of the chest was acquired. COMPARISON: [facility], CR, XR CHEST 1V, 10/27/2020, 9:32. FINDINGS: Surgical changes and devices: None. Lungs and pleura: Lungs are clear. No pleural effusions or pneumothorax. Mediastinum: Mediastinal contours appear normal. Heart size is normal. Bones and chest wall: No suspicious bony lesions. Overlying soft tissues appear unremarkable. IMPRESSION: None. Dictated by: Frankie Jennings M.D. on 12/23/2021 at 11:32 Approved by: Frankie Jennings M.D. on 12/23/2021 at 11:32
[2021-12-23 10:37] LABS: Add Manual Diff / Slide Review NO; Basophils Absolute Auto 100 /uL (0-100); Eosinophils Absolute Auto 100 /uL (0-450); Eosinophils Percent Auto 1.7 % (2-4); Hematocrit 32.8 % (41-53); Hemoglobin 9.9 g/dL (13.5-17.5); Lymphocytes Absolute Auto 1100 /uL (1100-4500); Lymphocytes Percent Auto 19.8 % (25-40); Mean Corpuscular HGB Conc 30.3 % (30-36); Mean Corpuscular Hemoglobin 19.3 PG (26-34); Mean Corpuscular Volume 63.7 fL (80-100); Monocytes Absolute Auto 400 /uL (0-900); Monocytes Percent Auto 7.9 % (3-14); Neutrophils Absolute Auto 3800 /uL (1500-7000); Neutrophils Percent Auto 68.6 % (50-75); Platelet Count 364 X10^3/uL (150-400); Red Blood Cell Count 5.14 X10^6/uL (4.5-5.9); Red Cell Distribution Width 18.4 % (11.6-14.8); White Blood Cell Count 5.5 X10^3/uL (4.5-11.0)
--- NOTE | 2021-12-23 10:39 | ED.CHESTPAIN ---
HPI - Chest Pain General Chief Complaint: Chest Pain Stated Complaint: High BP-seizure this morning- referred by PCP Time Seen by Provider: 12/23/21 10:39 Source: patient Mode of arrival: Wheelchair Limitations: no limitations History of Present Illness HPI narrative: This is a 31-year-old male with history of alcohol abuse, prior gi bleed and anemia. Patient states that overnight he thinks he had a seizure. He states he normally wakes up in the middle of the night he was having his usual chest pain which she describes as substernal, constantly there has never resolved over a significantly long time and states that he had almost fallen back asleep when he states that he felt like his equilibrium was off, he felt like he could not move his body but he also felt like he was convulsing and states that he felt fatigued and sore afterwards. Patient describes being aware of the sequence of events while they were occurring he states that he is felt lightheaded and like there is almost a tingling in his brain today he denies any fevers or chills. He states his chest pain has been constant longstanding and is in process of being set up for either a Holter monitor or ZIO patch and cardiology referral with his primary care. Had longstanding shortness of breath which has not changed. Does get nauseated occasionally when he is very anxious like when he has his blood drawn. He denies any emesis. He states he intermittently has black or bloody stools that are both constipated and diarrheal and has had EGDs and colonoscopies with no source found. Patient denies any current urinary symptoms. Never had seizure activity before. He has not passed out. He states his girlfriend was sleeping in the bed with him she woke up when he went to use his blood pressure cuff to check his blood pressure and he states it was very elevated at 188 systolic. He denies any medical issues, denies any past surgical issues. No tobacco. States he only drinks 5 alcoholic drinks weekly. No THC or other illicit. His grandfather had seizures at close to end of life any states his father had seizures secondary to alcohol abuse. Dr. Hanson is his PCP. Related Data Previous Rx's Medication Instructions Recorded clonidine HCl 0.1 mg tablet 0.1 mg PO Q4H Hypertensive urgency 11/24/21 #10 tabs Allergies Allergy/AdvReac Type Severity Reaction Status Date / Time codeine [CODEINE] Allergy Severe rash Verified 12/23/21 10:10 Review of Systems Review of Systems ROS Unobtainable: All systems reviewed & are unremarkable except as noted in HPI and below Patient History Medical History GI bleed Pilonidal cyst without infection Surgical History Anesthesia History of colonoscopy History of endoscopy Family History Father Stroke Mother Alcoholic Grandmother Cancer Diabetes mellitus Hyperlipidemia Hypertension Social History Smoking Status: Former smoker Smoking Status: Former smoker alcohol intake frequency: a few times a week Substance Use Type: does not use Exam Narrative Exam Narrative: GEN: well nourished, well appearing male, alert and oriented x 3, patient appears to be in mild distress. HEENT: Atraumatic, pupils are equal round reactive to light, extraocular movements are intact, there is no conjunctival pallor. HEART: Regular rate and rhythm without murmur, clicks, rubs. LUNGS:Lungs clear to auscultation, no wheezes, rales, crackles, chest moves symmetrically ABD:bowel sounds normal, soft, non-tender, no guarding, rebound, rigidity, no masses noted, no hepatosplenomegaly :No CVA tenderness MSCL: Non-tender, no muscle atrophy, muscles strength 5/5 upper and lower extremities, full range of motion, normal gait NEURO:CN 2-12 intact, sensation normal SKIN: No rash, erythema or other skin changes. Initial Vital Signs Initial Vital Signs: Vital Signs Temperature 98.0 F 12/23/21 10:10 Pulse Rate 91 H 12/23/21 10:10 Respiratory Rate 16 12/23/21 10:10 Blood Pressure 156/100 H 12/23/21 10:10 Pulse Oximetry 99 12/23/21 10:10 Oxygen Delivery Method 12/23/21 10:10 Course Orders Ordered: ED Orders 12/23/21 10:14 XR chest 1V Stat 12/23/21 10:16 EKG-12 Lead Stat 12/23/21 10:25 Complete Blood Count AUTO DIFF Stat Comprehensive Metabolic Panel Stat Lipase Stat Magnesium Stat Troponin & CK Cardiac Panel Stat 12/23/21 10:42 COVID19 -Nasal RAPID/Pre-Proc Stat Vital Signs Vital signs: Vital Signs - 8 hr 12/23/21 12:18 Pulse Rate 83 Respiratory Rate 18 Blood Pressure 134/88 Pulse Oximetry 97 Oxygen Delivery Method Room Air MDM - Chest Pain Lab Data Result diagrams: 12/23/21 10:25 12/23/21 10:25 Labs: Lab Results 12/23/21 12/23/21 12/23/21 Range/Units 10:25 10:25 10:42 WBC 5.5 (4.5-11.0) X10^3/uL RBC 5.14 (4.5-5.9) X10^6/uL Hgb 9.9 L (13.5-17.5) g/dL Hct 32.8 L (41-53) % MCV 63.7 L (80-100) fL MCH 19.3 L (26-34) PG MCHC 30.3 (30-36) % RDW 18.4 H (11.6-14.8) % Plt Count 364 (150-400) X10^3/uL Neut % (Auto) 68.6 (50-75) % Lymph % (Auto) 19.8 L (25-40) % [place] % (Auto) 7.9 (3-14) % Eos % (Auto) 1.7 L (2-4) % Baso % (Auto) 2.0 (0-2) % Neut # (Auto) 3800 (2007-7277) /uL Lymph # (Auto) 1100 (8642-5310) /uL [place] # (Auto) 400 (0-900) /uL Eos # (Auto) 100 (0-450) /uL Baso # (Auto) 100 (0-100) /uL RBC Morphology See below Hypochromasia 2+ H Anisocytosis 1+ H Microcytosis 2+ H Ovalocytes 1+ H Sodium 140 (137-145) mmol/L Potassium 3.8 (3.4-5.1) mmol/L Chloride 104 (98-107) mmol/L Carbon Dioxide 22 (22-32) mmol/L BUN 10 (9-20) mg/dL Creatinine 0.84 (0.66-1.25) mg/dL Estimated GFR > 60 (>60) mL/min BUN/Creatinine Ratio 11.9 (6-22) Glucose 135 H (70-100) mg/dL Calcium 9.3 (8.4-10.2) mg/dL Magnesium 1.7 (1.6-2.3) mg/dL Total Bilirubin 0.8 (0.2-1.3) mg/dL AST 149 H (17-59) IU/L ALT 156 H (<50) IU/L Alkaline Phosphatase 91 (38-126) U/L Total Creatine Kinase 188 H (55-170) U/L CK-MB (CK-2) 1.20 (<2.37) ng/mL CK-MB (CK-2) Rel Index 0.6 L (1.5-5.0) % Troponin I < 0.012 (0.01-0.034) ng/mL Total Protein 8.1 (6.3-8.2) g/dL Albumin 5.0 (3.5-5.0) g/dL Globulin 3.1 (1.7-4.1) g/dL Albumin/Globulin Ratio 1.6 (1.0-2.8) Lipase 72 (23-300) U/L SARS-CoV-2 (PCR) Negative (Negative) Imaging Data Chest x-ray: Radiologist's Impression: [address] [address] XRay Report Signed Patient: Iain Mckeon MR#: [id number] : 1990 Acct:[id number] Age/Sex: 31 / M Date of Service: 12/23/21 Loc: ED Accession Number: [id number] ?? Procedure: XR chest 1V Ordering Provider: Leslie Lim D.O. PROCEDURE:? XR CHEST 1V ? INDICATIONS:? Chest pain ? TECHNIQUE:? One view of the chest was acquired.? ? [facility]. ? FINDINGS:? ? Surgical changes and devices:? None.? ? Lungs and pleura:? Lungs are clear.? No pleural effusions or pneumothorax.? ? Mediastinum:? Mediastinal contours appear normal.? Heart size is normal.? ? Bones and chest wall:? No suspicious bony lesions.? Overlying soft tissues appear unremarkable.? ? IMPRESSION:? None. ? ? Dictated by: Frankie Jennings M.D. on 12/23/2021 at 11:32 ? ? Approved by: Frankie Jennings M.D. on 12/23/2021 at 11:32?? ECG Data Attestation: I personally reviewed and interpreted this ECG as follows: Interpretation: Sinus rhythm rate of 97 IN 138 QRS is 94 and QTC of 429. No acute ST elevation depression is noted. Patient has prior from 10/27/2020 which appears similar. MDM Narrative Medical decision making narrative: This is a 31-year-old male with reported history of alcohol abuse although patient's does not clearly admit to this. Patient had an episode overnight he felt like he was convulsing and thought he may have had a seizure but describes being aware through the entire event he describes having some difficulty with movement which may have been hypnagogic type episode. He is felt generally unwell today he is had persistent chest pain with no resolution over a long period of time, EKG and troponin are negative. Chest x-ray shows no acute change. Blood pressure normalized to 123 here in the department and is systolic of 123 on check. Does have chronic anemia hemoglobin 9.9 and was seen in November of 2021. Patient has normal white count, platelets, CMP shows no acute abnormalities mild elevation in LFTs but consistent with ETOH history, bilirubin and lipase are negative. Troponins negative with negative COVID swab. At this time patient is set up to be seen to have either a Holter monitor or ZIO patch placed and has been referred to Cardiology which I think is appropriate to evaluate for any rhythm abnormalities. Patient's anemia appears stable but is likely contributing to some of his fatigue symptoms. My suspicion for seizure is somewhat lower although there is risk with possible alcohol withdrawal the patient is not admitting to withdrawal symptoms today and states only 5 alcoholic drinks weekly. Plan for patient to follow up with primary care. All questions answered. 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 Impression: Atypical chest pain, Anemia Activity Restrictions/Additional Instructions: Follow up with your physician for recheck. I think following up for a Holter monitor or ZIO patch is very appropriate. I would recommend to continue having your hemoglobin monitored intermittently as you are still anemic although stable compared to November 2021. Please return for fevers, altered mental status, new or worsening symptoms, seizure-like activity, inability to control her movements, hallucinations or other new or concerning symptoms. Prescriptions: No Action clonidine HCl 0.1 mg tablet 0.1 mg PO Q4H Qty: 10 0RF Rx Instructions: For BP >180/110, repeat in 4 hours if not resolved. Referrals: Seymour Hanson MD [Primary Care Provider] - Visit Report Forms: Patient Portal/API
[2021-12-23 10:44] LABS: Alanine Aminotransferase 156 IU/L (<50); Albumin Globulin Ratio 1.6 (1.0-2.8); Alkaline Phosphatase 91 U/L (38-126); Aspartate Aminotransferase 149 IU/L (17-59); BUN Creatinine Ratio 11.9 (6-22); Bilirubin Total 0.8 mg/dL (0.2-1.3); Blood Urea Nitrogen 10 mg/dL (9-20); Calcium 9.3 mg/dL (8.4-10.2); Carbon Dioxide 22 mmol/L (22-32); Chloride 104 mmol/L (98-107); Creatine Kinase 188 U/L (55-170); Estimated Glomerular Filt Rate > 60 mL/min (>60); Globulin 3.1 g/dL (1.7-4.1); Glucose 135 mg/dL (70-100); HEMOLYSIS < 15 (0-50); Lipase 72 U/L (23-300); Magnesium 1.7 mg/dL (1.6-2.3); Potassium 3.8 mmol/L (3.4-5.1); Sodium 140 mmol/L (137-145); Total Protein 8.1 g/dL (6.3-8.2)
[2021-12-23 10:55] LABS: Troponin I < 0.012 ng/mL (0.01-0.034)
[2021-12-23 11:00] LABS: CKMB % Relative Index 0.6 % (1.5-5.0)
[2021-12-23 11:08] LABS: COVID19 -Nasal RAPID Negative (Negative)
[2021-12-23 11:17] LABS: Anisocytosis 1+; Microcytosis 2+
[2021-12-23 11:18] LABS: Hypochromasia 2+; Ovalocytes 1+
[2021-12-23 12:18] VITALS: BP 134/88; PULSE 83; RESP 18; O2SAT 97
--- NOTE | 2021-12-23 12:20 | PC.NURSE ---
Pt believes that he had a seizure this morning,unwitnessed. Denies injury. Prior to this at midnight he was having palpitations.
== END 2021-12-23 12:27 | disposition home or self-care (01) ==
PROVIDERS: Emergency Provider Emergency Medicine; PCP Student in an Organized Health Care Education/Training Program
DX: R07.89 Other chest pain (principal); D64.9 Anemia, unspecified; F10.21 Alcohol dependence, in remission; Z20.822 Contact with and (suspected) exposure to COVID-19
CPT/HCPCS: 36415; 71045; 80053; 82550; 82553; 83690; 83735; 84484; 85025; 87635; 93005; 93010; 99284; C9803

== ENCOUNTER 2022-01-20 09:18 | Emergency (ER) | payer OTHER, MEDICAID, SELFPAY ==
[2022-01-20 09:25] VITALS: BP 144/104; PULSE 79; RESP 15; TEMP 36.7; O2SAT 98; BMI 30.4
[2022-01-20 10:16] LABS: COVID19 -Nasal RAPID Negative (Negative)
--- NOTE | 2022-01-20 10:27 | ED.URI ---
HPI - URI/Sore Throat General Chief Complaint: Upper Respiratory Symptoms Stated Complaint: suden Swollen throat, SOB in last hour Time Seen by Provider: 01/20/22 10:20 Source: patient Mode of arrival: Ambulatory History of Present Illness HPI Narrative: Patient is a healthy 31-year-old male presents with sore throat on the right side and right-sided neck pain. He said he was fine and in his normal state of health yesterday but this morning woke up and it hurt to swallow. No fever or chills. The right side of his neck hurts to touch but he has no obvious swelling. Minimal headache no rash. Related Data Home Medications Medication Instructions Recorded Confirmed No Known Home Medications 12/28/21 12/28/21 Allergies Allergy/AdvReac Type Severity Reaction Status Date / Time codeine [CODEINE] Allergy Severe rash Verified 01/20/22 09:32 Review of Systems Review of Systems Narrative: GENERAL: Denies chills,fever HEENT: See HPI RESPIRATORY: Denies dyspnea, cough, wheezing CARDIOVASCULAR: Denies chest pain, palpitations GASTROINTESTINAL: Denies nausea, vomiting MUSCULOSKELETAL: Denies extremity pain, injury SKIN: No rash, no laceration, no pruritus NEUROLOGIC: Denies weakness, dizziness, headache, numbness 8 point review of systems is negative except for those stated above and HPI Patient History Medical History GI bleed Pilonidal cyst without infection Surgical History Anesthesia History of colonoscopy History of endoscopy Family History Father Stroke Mother Alcoholic Grandmother Cancer Diabetes mellitus Hyperlipidemia Hypertension Social History Smoking Status: Former smoker Smoking Status: Former smoker alcohol intake frequency: a few times a week Substance Use Type: does not use Exam Initial Vital Signs Initial Vital Signs: Vital Signs Temperature 98.1 F 01/20/22 09:25 Pulse Rate 79 01/20/22 09:25 Respiratory Rate 15 01/20/22 09:25 Blood Pressure 144/104 H 01/20/22 09:25 Pulse Oximetry 98 01/20/22 09:25 Oxygen Delivery Method 01/20/22 09:25 GENERAL: Alert 31-year-old male no acute distress PHARYNX: No erythema no uvular swelling or deviation. No cervical lymphadenopathy is appreciated however he tender to touch on the right side. No airway compromise no stridor CARDIOVASCULAR: peripheral pulses in tact, cap refill <2 sec RESPIRATORY: No respiratory distress, speaks in full sentences without difficulty EXTREMITIES: Normal range of motion, no clubbing or edema. Neurovascularly intact NEUROLOGICAL: Cranial nerves II through XII grossly intact. Normal gait and speech. SKIN: Warm, dry, no petechiae, no rashes or lesions. Course Orders Ordered: ED Orders 01/20/22 09:26 COVID19 -Nasal RAPID/Pre-Proc Stat Discontinued Medications Ibuprofen (Ibuprofen 400 Mg Tablet) 800 mg PO NOW ONE Stop: 01/20/22 10:29 Last Admin: 01/20/22 10:48 Dose: 800 mg Documented By: ANDRES Vital Signs Vital signs: Vital Signs - 8 hr 01/20/22 09:25 Temperature 98.1 F Pulse Rate 79 Respiratory Rate 15 Blood Pressure 144/104 H Pulse Oximetry 98 Oxygen Delivery Method Room Air MDM - URI/Sore Throat Lab Data Labs: Lab Results 01/20/22 Range/Units 09:26 SARS-CoV-2 (PCR) Negative (Negative) Point of Care Testing Rapid Strep A Negative MDM Narrative Medical decision making narrative: Patient overall appears well afebrile not tachycardic. Strep and COVID are both negative. He is mildly tender to touch on the right side of his neck but no significant lymphadenopathy is present. I suspect upper respiratory viral illness versus early COVID. At this time supportive care only with the COVID testing the few days. 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 Impression: Acute viral syndrome Instructions: DI for Viral Syndrome Activity Restrictions/Additional Instructions: *You have been diagnosed with a viral syndrome *What to do: At this time her COVID test is negative however I strongly encourage you to do a repeat home COVID test in about 2-3 days. Increase fluids as tolerated. *Continue to take medications as directed Ibuprofen 600 mg every 6 hours if needed for pain *Follow up with your primary care provider in 2-3 days or call [phone] *Return to ER if you should have increased neck pain swelling difficulty swallowing, or any new, worsening or concerning symptoms Prescriptions: No Action No Known Home Medications Referrals: Seymour Hanson MD [Primary Care Provider] - Stand Alone Forms: Work Release Note Visit Report Forms: Patient Portal/API
[2022-01-20] MEDS: IBUPROFEN 400 MG TABLET 800 MG PO (10:48)
== END 2022-01-20 10:55 | disposition home or self-care (01) ==
PROVIDERS: Emergency Provider Emergency Medicine; PCP Student in an Organized Health Care Education/Training Program
DX: B34.9 Viral infection, unspecified (principal); Z20.822 Contact with and (suspected) exposure to COVID-19
CPT/HCPCS: 87635; 87880; 99282; 99283; C9803

== ENCOUNTER → 2022-03-23 15:35 | Outpatient (CLI) | payer OTHER, MEDICAID, SELFPAY ==
[2022-03-23 16:37] LABS: Reticulocyte Count, Percent 2.6 % (0.9-2.6)
[2022-03-23 16:40] LABS: Hematocrit 31.6 % (41-53); Hemoglobin 9.6 g/dL (13.5-17.5); Mean Corpuscular HGB Conc 30.2 % (30-36); Mean Corpuscular Hemoglobin 20.2 PG (26-34); Mean Corpuscular Volume 66.8 fL (80-100); Platelet Count 437 X10^3/uL (150-400); Red Blood Cell Count 4.73 X10^6/uL (4.5-5.9); Red Cell Distribution Width 19.5 % (11.6-14.8); White Blood Cell Count 9.5 X10^3/uL (4.5-11.0)
[2022-03-23 16:46] LABS: HEMOLYSIS < 15 (0-50); Iron 21 ug/dL (49-181)
[2022-03-23 16:57] LABS: Percent Iron Saturation 4 % (20-50); Total Iron Binding Capacity 567 ug/dL (261-462); Transferrin 482 mg/dL (206-381)
[2022-03-23 17:23] LABS: Ferritin 6 ng/mL (18-464)
[2022-03-23 17:29] LABS: Ur Creatinine Normal (Normal); Ur Specific Gravity Normal (Normal); Urine pH Normal (Normal)
[2022-03-23 17:30] LABS: UR Morphine/Opiate cutoff 300 Negative (Negative); Urine Amphetamines Negative (Negative); Urine Barbiturates Negative (Negative); Urine Benzodiazepines Negative (Negative); Urine Cocaine Negative (Negative); Urine MDMA Negative (Negative); Urine Methadone Negative (Negative); Urine Methamphetamines Negative (Negative); Urine Oxycodone Negative (Negative); Urine Phencyclidine Negative (Negative); Urine Tetrahydrocannabinol Negative (Negative); Urine Tricyclic Antidepressant Negative (Negative)
== END ==
PROVIDERS: PCP Student in an Organized Health Care Education/Training Program; Referring Provider Student in an Organized Health Care Education/Training Program; Visit Provider Student in an Organized Health Care Education/Training Program
DX: D50.9 Iron deficiency anemia, unspecified (principal); F10.21 Alcohol dependence, in remission; G47.00 Insomnia, unspecified
CPT/HCPCS: 36415; 80305; 82728; 83540; 83550; 85027; 85045

== ENCOUNTER 2022-12-30 16:42 | Emergency (ER) | payer OTHER, MEDICAID, SELFPAY ==
[2022-12-30 16:45] VITALS: BP 139/83; PULSE 92; RESP 17; TEMP 36.7; O2SAT 97; BMI 33.0
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
[2022-12-30] MEDS: ACETAMINOPHEN 325 MG TABLET 975 MG PO (17:24)
[2022-12-30] MEDS: LIDOCAINE PATCH 1 EACH ADH..PATCH TOP (17:25)
[2022-12-30] MEDS: KETOROLAC 10 MG TABLET PO (17:25)
== END 2022-12-30 17:31 | disposition home or self-care (01) ==
PROVIDERS: Emergency Provider Nurse Practitioner Critical Care Medicine; PCP Student in an Organized Health Care Education/Training Program
DX: S06.0X0A Concussion without loss of consciousness, initial encounter (principal); S16.1XXA Strain of muscle, fascia and tendon at neck level, initial encounter; V89.2XXA Person injured in unspecified motor-vehicle accident, traffic, initial encounter
CPT/HCPCS: 99283

== ENCOUNTER → 2023-08-23 14:16 | Outpatient (CLI) | payer OTHER, MEDICAID, SELFPAY ==
[2023-08-23 15:49] LABS: Add Manual Diff / Slide Review NO; Basophils Absolute Auto 0 /uL (0-100); Basophils Percent Auto 0.9 % (0-2); Eosinophils Absolute Auto 0 /uL (0-450); Eosinophils Percent Auto 0.7 % (2-4); Hematocrit 28.2 % (41-53); Hemoglobin 8.3 g/dL (13.5-17.5); Lymphocytes Absolute Auto 1300 /uL (1100-4500); Lymphocytes Percent Auto 26.6 % (25-40); Mean Corpuscular HGB Conc 29.4 % (30-36); Mean Corpuscular Hemoglobin 17.3 PG (26-34); Mean Corpuscular Volume 58.8 fL (80-100); Monocytes Absolute Auto 400 /uL (0-900); Monocytes Percent Auto 7.4 % (3-14); Neutrophils Absolute Auto 3200 /uL (1500-7000); Neutrophils Percent Auto 64.4 % (50-75); Platelet Count 325 X10^3/uL (150-400); Red Blood Cell Count 4.79 X10^6/uL (4.5-5.9)
[2023-08-23 15:58] LABS: HEMOLYSIS < 15 (0-50); Iron 27 ug/dL (49-181)
[2023-08-23 16:01] LABS: Alanine Aminotransferase 308 IU/L (<50); Albumin 4.8 g/dL (3.5-5.0); Albumin Globulin Ratio 1.4 (1.0-2.8); Alkaline Phosphatase 111 U/L (38-126); Aspartate Aminotransferase 458 IU/L (17-59); BUN Creatinine Ratio 9.5 (6-22); Bilirubin Total 1.1 mg/dL (0.2-1.3); Blood Urea Nitrogen 7 mg/dL (9-20); Calcium 9.7 mg/dL (8.4-10.2); Carbon Dioxide 24 mmol/L (22-32); Chloride 101 mmol/L (98-107); Estimated Glomerular Filt Rate > 60 mL/min (>60); Globulin 3.4 g/dL (1.7-4.1); Glucose 102 mg/dL (70-100); HEMOLYSIS < 15 (0-50); Magnesium 1.4 mg/dL (1.6-2.3); Potassium 4.5 mmol/L (3.4-5.1); Sodium 138 mmol/L (137-145); Total Protein 8.2 g/dL (6.3-8.2)
[2023-08-23 16:12] LABS: Percent Iron Saturation 5 % (20-50); Total Iron Binding Capacity 519 ug/dL (261-462); Transferrin 505 mg/dL (206-381)
[2023-08-23 16:19] LABS: Microcytosis 2+
[2023-08-23 16:22] LABS: Free T4, Direct Thyroxine 1.02 ng/dL (0.78-2.19)
[2023-08-23 16:33] LABS: Ferritin 13 ng/mL (18-464)
[2023-08-23 16:35] LABS: Thyroid Stimulating Hormone 2.79 uIU/mL (0.47-4.68)
[2023-08-23 16:48] LABS: Vitamin B12 Reflex MMA if <400 696 pg/mL (239-931)
== END ==
PROVIDERS: PCP Internal Medicine; Referring Provider Internal Medicine; Visit Provider Internal Medicine
DX: Z84.89 Family history of other specified conditions (principal); K14.1 Geographic tongue; R53.83 Other fatigue; F44.5 Conversion disorder with seizures or convulsions; R56.9 Unspecified convulsions; R63.4 Abnormal weight loss
CPT/HCPCS: 36415; 80053; 82607; 82728; 83540; 83550; 83735; 84439; 84443; 85025

== ENCOUNTER 2024-05-23 14:02 | Emergency (ER) | payer OTHER, SELFPAY ==
[2024-05-23] VITALS (11 sets, daily range): BP systolic 118–156; BP diastolic 78–95; PULSE 76–100; RESP 15–21; TEMP 36.8; O2SAT 94–98; BMI 27.9
--- NOTE | 2024-05-23 14:18 | EKG_ITS ---
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
--- NOTE | 2024-05-23 14:18 | DI.RAD.S_ITS ---
PROCEDURE: XR CHEST 1V INDICATIONS: chest pain TECHNIQUE: One view of the chest was acquired. COMPARISON: [facility], CR, XR CHEST 1V, 12/23/2021, 10:25. FINDINGS: Surgical changes and devices: None. Lungs and pleura: Lungs are clear. No pleural effusions or pneumothorax. Mediastinum: Mediastinal contours appear normal. Heart size is normal. Bones and chest wall: No suspicious bony lesions. Overlying soft tissues appear unremarkable. IMPRESSION: No acute cardiopulmonary abnormality is seen. Dictated by: Oneil Dave M.D. on 05/23/2024 at 15:27 Approved by: Oneil Dave M.D. on 05/23/2024 at 15:28
[2024-05-23 14:43] LABS: Add Manual Diff / Slide Review NO; Basophils Absolute Auto 100 /uL (0-100); Basophils Percent Auto 1.1 % (0-2); Eosinophils Absolute Auto 100 /uL (0-450); Eosinophils Percent Auto 1.5 % (2-4); Hematocrit 35.9 % (41-53); Lymphocytes Absolute Auto 1400 /uL (1100-4500); Lymphocytes Percent Auto 26.4 % (25-40); Mean Corpuscular HGB Conc 30.5 % (30-36); Mean Corpuscular Hemoglobin 21.5 PG (26-34); Mean Corpuscular Volume 70.6 fL (80-100); Monocytes Absolute Auto 400 /uL (0-900); Monocytes Percent Auto 6.6 % (3-14); Neutrophils Absolute Auto 3500 /uL (1500-7000); Neutrophils Percent Auto 64.4 % (50-75); Platelet Count 284 X10^3/uL (150-400); Red Blood Cell Count 5.09 X10^6/uL (4.5-5.9); Red Cell Distribution Width 18.6 % (11.6-14.8); White Blood Cell Count 5.5 X10^3/uL (4.5-11.0)
[2024-05-23 14:52] LABS: Prothrombin Time 11.6 SECONDS (9.4-12.5)
[2024-05-23 14:55] LABS: PTT Partial Thromboplastin Tim 34 SECONDS (25.1-36.5)
[2024-05-23 14:58] LABS: Alanine Aminotransferase 175 IU/L (<50); Albumin 4.8 g/dL (3.5-5.0); Albumin Globulin Ratio 1.4 (1.0-2.8); Alkaline Phosphatase 112 U/L (38-126); Aspartate Aminotransferase 239 IU/L (17-59); BUN Creatinine Ratio 10.3 (6-22); Bilirubin Total 0.9 mg/dL (0.2-1.3); Blood Urea Nitrogen 8 mg/dL (9-20); Calcium 9.2 mg/dL (8.4-10.2); Carbon Dioxide 22 mmol/L (22-32); Chloride 105 mmol/L (98-107); Creatine Kinase 352 U/L (55-170); Estimated Glomerular Filt Rate > 60 mL/min (>60); Globulin 3.4 g/dL (1.7-4.1); Glucose 147 mg/dL (70-100); HEMOLYSIS < 15 (0-50); Lipase 111 U/L (23-300); Magnesium 1.6 mg/dL (1.6-2.3); Potassium 3.7 mmol/L (3.4-5.1); Sodium 140 mmol/L (137-145); Total Protein 8.2 g/dL (6.3-8.2)
--- NOTE | 2024-05-23 14:58 | ED.CHESTPAIN ---
HPI - Chest Pain General Chief Complaint: Chest Pain Stated Complaint: chest px, sob, bp200/139, cardiac pt Time Seen by Provider: 05/23/24 14:20 Source: patient Mode of arrival: Wheelchair Limitations: no limitations History of Present Illness HPI narrative: Patient is a 33-year-old male. He states he woke up this morning with some chest pain and shortness of breath. He stated that he had a hard time taking a deep breath. He felt very poorly. He took his blood pressure and it was elevated at 2 100/139. Has had a history of high blood pressure in the past. He arrives stating that he was feeling somewhat better but is having sharp chest pain. He states it was not reproducible with movement or palpation. It is worse with taking a deep breath. No fevers. The pain did radiate down his left arm. Related Data Home Medications Medication Instructions Recorded Confirmed pantoprazole 20 mg tablet,delayed 20 mg PO DAILY 02/02/22 03/23/22 release Previous Rx's Medication Instructions Recorded ibuprofen 600 mg tablet 600 mg PO Q8H PRN fever or pain 12/30/22 #30 tabs lidocaine 5 % topical patch 1 patch topical DAILY #30 ea 12/30/22 (Lidoderm) methocarbamol 500 mg tablet 500 mg PO TID PRN muscle spasm #20 12/30/22 tabs Allergies Allergy/AdvReac Type Severity Reaction Status Date / Time codeine [CODEINE] Allergy Severe rash Verified 05/23/24 14:17 Review of Systems Review of Systems ROS Unobtainable: All systems reviewed & are unremarkable except as noted in HPI and below Patient History Medical History Pilonidal cyst without infection GI bleed Surgical History Anesthesia History of colonoscopy History of endoscopy Family History Father Stroke Mother Alcoholic Grandmother Cancer Diabetes mellitus Hyperlipidemia Hypertension Social History Smoking Status: Former smoker Smoking Status: Former smoker alcohol intake frequency: a few times a week Exam Initial Vital Signs Initial Vital Signs: Vital Signs Temperature 98.3 F 05/23/24 14:12 Pulse Rate 100 H 05/23/24 14:12 Respiratory Rate 16 05/23/24 14:12 Blood Pressure 156/94 H 05/23/24 14:12 Pulse Oximetry 94 05/23/24 14:12 Oxygen Delivery Method Room Air 05/23/24 14:12 Const General: cooperative and No ill appearing HENMT Head: normal to inspection and normocephalic Resp Effort & Inspection: normal respiratory effort Auscultation: clear to auscultation bilaterally Cardio Rate: regular rate Rhythm: regular rhythm GI Inspection: normal to inspection and non-distended Skin General: no rashes or lesions noted Neuro General: patient alert, patient awake, patient oriented x3 and moves all extremities Extrem General: capillary refill normal Course Orders Ordered: ED Orders 05/23/24 14:18 XR chest 1V Stat EKG-12 Lead Stat 05/23/24 14:34 Complete Blood Count AUTO DIFF Stat Comprehensive Metabolic Panel Stat D Dimer Stat Lipase Stat Magnesium Stat NT-proBNP (BNP-Adult 18+) Stat PTT Partial Thromboplastin Isaiah Stat Prothrombin Time INR Stat Troponin & CK Cardiac Panel Stat 05/23/24 17:15 Troponin & CK Cardiac Panel Stat Discontinued Medications Aspirin (Aspirin 81 Mg Chew Tab) 324 mg PO NOW ONE Stop: 05/23/24 14:18 Last Admin: 05/23/24 15:35 Dose: Not Given Documented By: JACKI Ketorolac Tromethamine (Ketorolac 30 Mg/Ml Vial) 15 mg IV NOW ONE Stop: 05/23/24 15:00 Last Admin: 05/23/24 15:34 Dose: 15 mg Documented By: JACKI Vital Signs Vital signs: Vital Signs - 8 hr 05/23/24 14:12 05/23/24 14:34 05/23/24 14:34 Temperature 98.3 F Pulse Rate 100 H 93 H Respiratory Rate 16 Blood Pressure 156/94 H 134/95 H Pulse Oximetry 94 97 Oxygen Delivery Method Room Air 05/23/24 15:00 05/23/24 15:01 05/23/24 15:01 Temperature Pulse Rate 82 88 Respiratory Rate 21 20 Blood Pressure 122/91 H Pulse Oximetry 96 96 Oxygen Delivery Method Room Air 05/23/24 15:30 05/23/24 16:00 05/23/24 16:00 Temperature Pulse Rate 84 79 Respiratory Rate 18 19 Blood Pressure 127/82 Pulse Oximetry 95 95 Oxygen Delivery Method 05/23/24 16:30 05/23/24 16:30 05/23/24 17:00 Temperature Pulse Rate 78 Respiratory Rate 16 Blood Pressure 123/80 118/78 Pulse Oximetry 95 Oxygen Delivery Method Room Air 05/23/24 17:00 05/23/24 17:30 05/23/24 17:30 Temperature Pulse Rate 92 H 76 Respiratory Rate 16 15 Blood Pressure 125/82 Pulse Oximetry 95 96 Oxygen Delivery Method Room Air Room Air MDM - Chest Pain Lab Data Attestation: I reviewed the patient's lab results. 05/23/24 14:34 05/23/24 14:34 Labs: Lab Results 05/23/24 05/23/24 Range/Units 14:34 17:15 WBC 5.5 (4.5-11.0) X10^3/uL RBC 5.09 (4.5-5.9) X10^6/uL Hgb 11.0 L (13.5-17.5) g/dL Hct 35.9 L (41-53) % MCV 70.6 L (80-100) fL MCH 21.5 L (26-34) PG MCHC 30.5 (30-36) % RDW 18.6 H (11.6-14.8) % Plt Count 284 (150-400) X10^3/uL Neut % (Auto) 64.4 (50-75) % Lymph % (Auto) 26.4 (25-40) % [place] % (Auto) 6.6 (3-14) % Eos % (Auto) 1.5 L (2-4) % Baso % (Auto) 1.1 (0-2) % Neut # (Auto) 3500 (4970-3193) /uL Lymph # (Auto) 1400 (8572-0465) /uL [place] # (Auto) 400 (0-900) /uL Eos # (Auto) 100 (0-450) /uL Baso # (Auto) 100 (0-100) /uL PT 11.6 (9.4-12.5) SECONDS INR 1.0 (0.9-1.3) APTT 34 (25.1-36.5) SECONDS D-Dimer 310 (<500) ng/ml Sodium 140 (137-145) mmol/L Potassium 3.7 (3.4-5.1) mmol/L Chloride 105 (98-107) mmol/L Carbon Dioxide 22 (22-32) mmol/L BUN 8 L (9-20) mg/dL Creatinine 0.78 (0.66-1.25) mg/dL Estimated GFR > 60 (>60) mL/min BUN/Creatinine Ratio 10.3 (6-22) Glucose 147 H (70-100) mg/dL Calcium 9.2 (8.4-10.2) mg/dL Magnesium 1.6 (1.6-2.3) mg/dL Total Bilirubin 0.9 (0.2-1.3) mg/dL AST 239 H (17-59) IU/L ALT 175 H (<50) IU/L Alkaline Phosphatase 112 (38-126) U/L Total Creatine Kinase 352 H 307 H (55-170) U/L Troponin I < 0.012 < 0.012 (0.01-0.034) ng/mL NT-Pro-B Natriuret Pep < 20 (<125) pg/mL Total Protein 8.2 (6.3-8.2) g/dL Albumin 4.8 (3.5-5.0) g/dL Globulin 3.4 (1.7-4.1) g/dL Albumin/Globulin Ratio 1.4 (1.0-2.8) Lipase 111 (23-300) U/L Imaging Data Chest x-ray: Radiologist's Impression: PROCEDURE: XR CHEST 1V INDICATIONS: chest pain TECHNIQUE: One view of the chest was acquired. COMPARISON: [facility], , XR CHEST 1V, 12/23/2021, 10:25. FINDINGS: Surgical changes and devices: None. Lungs and pleura: Lungs are clear. No pleural effusions or pneumothorax. Mediastinum: Mediastinal contours appear normal. Heart size is normal. Bones and chest wall: No suspicious bony lesions. Overlying soft tissues appear unremarkable. IMPRESSION: No acute cardiopulmonary abnormality is seen. ECG Data Attestation: I personally reviewed and interpreted this ECG as follows: Interpretation: Sinus rhythm Ventricular rate 93 Normal axis Normal QRS Normal QTC No ST T wave changes MDM Narrative Medical decision making narrative: Patient now states he was feeling much better. His blood pressure improve. Chest x-ray is unremarkable. D-dimer was negative. Nonischemic EKG. 2- troponins. Low suspicion for PE, ACS, thoracic aortic injury, pneumonia. I discussed all this with the patient. He states he was going to contact his primary doctor tomorrow for follow-up. He was given return precautions. He expressed understanding and agreement. 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 Impression: Atypical chest pain Instructions: DI for Atypical Chest Pain Activity Restrictions/Additional Instructions: Continue to take all of your medications as directed. Contact your primary care doctor tomorrow for follow-up. Return to the emergency department for new or worsening symptoms. Prescriptions: No Action pantoprazole 20 mg tablet,delayed release (DR/EC) 20 mg PO DAILY methocarbamol 500 mg tablet 500 mg PO TID PRN (Reason: muscle spasm) Qty: 20 0RF lidocaine [Lidoderm] 5 % adhesive patch,medicated 1 patch topical DAILY Qty: 30 0RF Rx Instructions: leave on most painful area for up to 12 hrs ibuprofen 600 mg tablet 600 mg PO Q8H PRN (Reason: fever or pain) Qty: 30 0RF Referrals: Luigi Sol DO [Primary Care Provider] - Stand Alone Forms: Patient Portal/API/Survey
[2024-05-23 15:09] LABS: NT-proBNP (BNP-Adult 18+) < 20 pg/mL (<125); Troponin I < 0.012 ng/mL (0.01-0.034)
[2024-05-23 15:26] LABS: D Dimer 310 ng/ml (<500)
[2024-05-23] MEDS: KETOROLAC 30 MG/ML VIAL 15 MG IV (15:34)
[2024-05-23 17:37] LABS: Creatine Kinase 307 U/L (55-170)
[2024-05-23 17:50] LABS: Troponin I < 0.012 ng/mL (0.01-0.034)
== END 2024-05-23 18:26 | disposition home or self-care (01) ==
PROVIDERS: Emergency Provider Emergency Medicine; PCP Internal Medicine
DX: R07.89 Other chest pain (principal); R06.02 Shortness of breath; R03.0 Elevated blood-pressure reading, without diagnosis of hypertension
CPT/HCPCS: 36415; 71045; 80053; 82550; 83690; 83735; 83880; 84484; 85025; 85379; 85610; 85730; 93005; 96374; 99284; J1885

== ENCOUNTER 2024-05-24 11:36 | Emergency (ER) | payer OTHER, SELFPAY ==
[2024-05-24 11:38] VITALS: BP 178/112; PULSE 105; RESP 16; TEMP 36.3; O2SAT 98; BMI 28.4
--- NOTE | 2024-05-24 11:41 | EKG_ITS ---
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
== END 2024-05-24 12:24 | disposition left against medical advice (07) ==
PROVIDERS: Emergency Provider Emergency Medicine; PCP Internal Medicine
DX: I10 Essential (primary) hypertension (principal)
CPT/HCPCS: 93005; 99281